=== PATIENT | female | born 1960 | race Caucasian/White ===

== ENCOUNTER 2023-03-07 15:31 | Emergency (ER) | payer OTHER ==
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
[2023-03-07 16:33] LABS: Absolute Neutrophil Ct (ANC) 6.81 x10^3/uL (1.4-6.9); BASOPHIL % 0.4 % (0.0-0.4); Basophil (Absolute #) 0.07 x10^3/uL (0-0.4); Eosinophil % 3.3 % (0.00-5.0); Eosinophil (Absolute #) 0.63 x10^3/uL (0-0.5); Hematocrit 40.9 % (35-47); Hemoglobin 12.7 g/dL (12.0-16.0); IMMATURE GRAN # 0.06 x10^3u/L (0.00-0.03); IMMATURE GRAN % 0.3 % (0.00-0.4); Lymphocyte (Absolute #) 10.62 x10^3/uL (1.0-4.6); Lymphocytes % 56.4 % (24.0-44.0); Mean Cell Volume 90.9 fL (78-100); Mean Corpuscular Hemoglobin 28.2 pg (26-32); Mean Corpuscular Hgb Concent. 31.1 g/dL (32-36); Mean Platelet Volume 8.9 fL (7.5-11.0); Monocyte (Absolute #) 0.64 x10^3/uL (0.0-1.3); Monocytes % 3.4 % (0.0-12.0); Neutrophil % 36.2 % (36.0-66.0); Platelet Count 177 x10^3/uL (150-450); Red Cell Distribution Width 15.4 % (11.5-14.0); White Blood Count 18.8 x10^3/uL (4.0-10.5)
[2023-03-07 17:00] LABS: ALBUMIN 3.8 g/dL (3.5-5.0); ALKALINE PHOSPHATASE 214 U/L (38-126); ANION GAP 14.6 MEQ/L (5-15); BLOOD UREA NITROGEN 22 mg/dL (7-17); CHLORIDE 103 mmol/L (98-107); Carbon Dioxide 25 mmol/L (22-30); Creatinine 1 0.71 mg/dL (0.52-1.04); EST GLOMERULAR FILTRATION RATE > 60.0 ML/MIN; Glucose 100 mg/dL (74-106); Potassium 4.2 mmol/L (3.5-5.1); SGOT/AST 28 U/L (14-36); SGPT/ALT 26 U/L (0-35); SODIUM 138 mmol/L (137-145); Total Protein 7.1 g/dL (6.3-8.2)
[2023-03-07 17:31] VITALS: BP 112/76; PULSE 87; O2SAT 94
[2023-03-07 17:38] LABS: INFLUENZA A NEGATIVE (NEGATIVE); INFLUENZA B NEGATIVE (NEGATIVE); RESPIRATORY SYNCTIAL VIRUS NEGATIVE (NEGATIVE); SARS-CoV-2 Xpert Express NEGATIVE (NEGATIVE)
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
[2023-03-07] MEDS ORDERED: Levofloxacin 250MG Tablet PO ONE (18:11)
[2023-03-07] MEDS ORDERED: Levofloxacin 250MG Tablet ONE (18:13)
[2023-03-07 19:09] LABS: Slide Review 1 YES
== END 2023-03-07 18:28 | disposition home or self-care (01) ==
LOC: ED 15:31
DX: J18.9 Pneumonia, unspecified organism (principal); J44.9 Chronic obstructive pulmonary disease, unspecified; Z79.899 Other long term (current) drug therapy; Z72.0 Tobacco use; Z20.828 Contact with and (suspected) exposure to other viral communicable diseases
CPT/HCPCS: 0241U; 36415; 71250; 80053; 83605; 85025; 99283; A9270-GY

== ENCOUNTER 2024-10-18 11:17 | Emergency (ER) | payer BC ==
--- NOTE | 2024-10-18 11:19 | ERPHSYRPT ---
- History of Present Illness Time Seen by Provider: 10/18/24 11:18 Historian: patient, family Exam Limitations: no limitations Physician History: This is a 63-year-old white male patient who arrives by private vehicle accompanied by his significant other and is a patient of Dr. Chapman. His complaint is nausea vomiting and diarrhea as well as abdominal pain for 24 hours . He is unable to hold any oral intake down. Patient denies new medications. He is a daily smoker of cigarettes. He also smokes marijuana daily. Patient has a history of anxiety, hyperlipidemia, depression, seizure disorder, COPD and has leukemia. This is never happened to him in the past. He has not been around any individuals with similar symptoms or with the diagnosis of viral illness. Timing/Duration: yesterday Quality: cramping (Generalized mild) Abdominal Pain Onset Location: generalized abdomen Pain Radiation: no radiation Severity of Pain-Max: mild Severity of Pain-Current: mild Modifying Factors: Improves With: vomiting Associated Symptoms: diarrhea, loss of appetite, nausea, vomiting, weakness, No chest pain, No fever/chills, No headache, No shortness of breath Previous symptoms: no prior history, no recent treatment Allergies/Adverse Reactions: No Known Drug Allergies Allergy (Verified 03/07/23 15:46) Home Medications: Albuterol Sulfate [Albuterol Sulfate Hfa] 1 puff IH DAILY 03/07/23 [History] Aspirin EC 81 mg [Ecotrin 81 mg] 81 mg PO BID 03/07/23 [History] Atorvastatin Calcium 80 mg PO DAILY 03/07/23 [History] Docusate Sodium 100 mg [Docusate Sodium 100 MG] 100 mg PO DAILY 03/07/23 [History] Fluticasone/Umeclidin/Vilanter [Trelegy Ellipta 100-62.5-25] 1 unit IH DAILY 03/07/23 [History] Levetiracetam [Keppra] 1,000 mg PO DAILY 03/07/23 [History] PARoxetine HCL [Paxil] 30 mg PO BID 03/07/23 [History] clonazePAM [Klonopin] 0.5 mg PO DAILY PRN 10/18/24 [History] Hx Tetanus, Diphtheria Vaccination/Date Given: Yes Hx Influenza Vaccination/Date Given: Yes Hx Pneumococcal Vaccination/Date Given: No Travel Risk - International Travel Have you traveled outside of the country in past 3 weeks: No - Emerging Infectious Disease Are you exhibiting symptoms associated with any current EIDs: Yes Symptoms: Abdominal Pain, Diarrhea, Vomitting - Review of Systems Constitutional: Weakness Eyes: No Symptoms Ears, Nose, & Throat: No Symptoms Respiratory: No Symptoms Cardiac: No Symptoms Abdominal/Gastrointestinal: Abdominal Pain, Nausea, Vomiting, Diarrhea, Appetite Changes Genitourinary Symptoms: No Symptoms Musculoskeletal: Arthralgias, Myalgias, No Neck Pain Skin: No Symptoms Neurological: No Symptoms Psychological: No Symptoms Endocrine: No Symptoms Hematologic/Lymphatic: No Symptoms Immunological/Allergic: No Symptoms All Other Systems: Reviewed and Negative - Past Medical History Pertinent Past Medical History: Yes Neurological History: Stroke ENT History: Cataracts Cardiac History: Hypertension Respiratory History: COPD Endocrine Medical History: Other Musculoskeletal History: Osteoarthritis GI Medical History: No Pertinent History History: No Pertinent History Psycho-Social History: Anxiety, Depression Other Medical History: PMH: LACERATED SPLEEN, COLLAPSED LUNG, MUTLIPLE RIB AND VERTEBRA FRACTURES. PSH: B KNEE SURGERY - Past Surgical History Past Surgical History: Yes Other Surgical History: abdominial surgery. chest tube. right and left knee ligament repair - Social History Smoking Status: Current every day smoker How long have you smoked: years Exposure to second hand smoke: Yes Drug Use: marijuana Patient Lives Alone: No - Nursing Vital Signs Nursing Vital Signs: Initial Vital Signs Temperature 97.2 F 10/18/24 11:26 Pulse Rate 110 H 10/18/24 11:26 Respiratory Rate 20 10/18/24 11:26 Blood Pressure 111/93 10/18/24 11:26 O2 Sat by Pulse Oximetry 98 10/18/24 11:26 Pain Scale Pain Intensity 0 - Physical Exam General Appearance: mild distress, alert, anxiety, thin Eye Exam: PERRL/EOMI, eyes nml inspection Ears, Nose, Throat Exam: normal ENT inspection, moist mucous membranes Neck Exam: normal inspection, non-tender, supple, full range of motion Respiratory Exam: normal breath sounds, lungs clear, airway intact, No chest tenderness, No respiratory distress Cardiovascular Exam: tachycardia Gastrointestinal/Abdomen Exam: soft, normal bowel sounds, tenderness (Mild diffuse), guarding (Mild diffuse to palpation) Rectal Exam: not done Back Exam: normal inspection, normal range of motion, No CVA tenderness, No vertebral tenderness Extremity Exam: normal inspection, normal range of motion, pelvis stable Neurologic Exam: alert, oriented x 3, cooperative, sausage inspector II-XII nml as tested, nml cerebellar function, nml station & gait, sensation nml Skin Exam: normal color, warm, dry Lymphatic Exam: No adenopathy SpO2 Interpretation: normal O2 Delivery: Room Air - Course Nursing assessment & vital signs reviewed: Yes Ordered Tests: Active Orders 24 hr Category Date Time Status IV Insertion STAT Care 10/18/24 11:43 Active ABDOMEN AND PELVIS W/0 CONTRAS [CT] Stat Exams 10/18/24 12:00 Completed AMYLASE Stat Lab 10/18/24 11:55 Completed BLOOD CULTURE Stat Lab 10/18/24 12:25 Received CBC W DIFF Stat Lab 10/18/24 11:55 Results CMP Stat Lab 10/18/24 11:55 Completed CULTURE,URINE Stat Lab 10/18/24 12:16 Received LIPASE Stat Lab 10/18/24 11:55 Completed MONO SCREEN Stat Lab 10/18/24 11:55 Completed Manual Differential NC Stat Lab 10/18/24 11:55 Results Pathologist Review Stat Lab 10/18/24 11:55 Results UA W/RFX UR CULTURE Stat Lab 10/18/24 12:16 Completed Medication Summary Discontinued Medications Generic Name Dose Route Start Last Admin Trade Name Pardeepq PRN Reason Stop Dose Admin Sodium Chloride 1,000 mls @ 999 mls/hr 10/18/24 11:43 10/18/24 13:47 Sodium Chloride 0.9% 1000 Ml IV 10/18/24 12:43 Infused .Q1H1M STA Infusion Sodium Chloride Confirm 10/18/24 12:05 Sodium Chloride 0.9% 1000 Ml Administered 10/18/24 12:06 Dose 1,000 mls @ ud .ROUTE .STK-MED ONE Ondansetron HCl 4 mg 10/18/24 11:43 10/18/24 12:07 Ondansetron Hcl 4 Mg/2 Ml Vial IV 10/18/24 11:44 4 mg STAT ONE Administration Ondansetron HCl Confirm 10/18/24 12:05 Ondansetron Hcl 4 Mg/2 Ml Vial Administered 10/18/24 12:06 Dose 4 mg .ROUTE .STK-MED ONE Pantoprazole Sodium 40 mg 10/18/24 11:43 10/18/24 12:07 Pantoprazole 40 Mg Vial IV 10/18/24 11:44 40 mg STAT ONE Administration Pantoprazole Sodium Confirm 10/18/24 12:05 Pantoprazole 40 Mg Vial Administered 10/18/24 12:06 Dose 40 mg IV .STK-MED ONE Lab/Rad Data: Laboratory Result Diagrams 10/18/24 11:55 10/18/24 11:55 Laboratory Results 10/18/24 10/18/24 10/18/24 Range/Units 12:26 12:16 11:55 WBC (4.23-9.07) x10^3/uL RBC (4.63-6.08) x10^6/uL Hgb (13.7-17.5) g/dL Hct (40.1-51.0) % MCV (79.0-92.2) fL MCH (25.7-32.2) pg MCHC (32.3-36.5) g/dL RDW (11.6-14.4) % Plt Count (163-337) x10^3/uL MPV (9.4-12.4) fL Segmented Neutrophils (34.0-67.9) % Band Neutrophils (0.0-2.0) % Lymphocytes (Manual) (21.8-53.1) % Monocytes (Manual) (5.3-12.2) % Metamyelocytes % Platelet Estimate (NORMAL) RBC Morphology Anisocytosis Macrocytosis Smear Path Review Sodium (135-145) mmol/L Potassium (3.5-5.1) mmol/L Chloride (98-107) mmol/L Carbon Dioxide (22-30) mmol/L Anion Gap (5-15) MEQ/L BUN (9-20) mg/dL Creatinine (0.66-1.25) mg/dL Estimated GFR ML/MIN Glucose (74-106) mg/dL Calcium (8.4-10.2) mg/dL Total Bilirubin (0.2-1.3) mg/dL AST (17-59) U/L ALT (0-50) U/L Alkaline Phosphatase (38-126) U/L Serum Total Protein (6.3-8.2) g/dL Albumin (3.5-5.0) g/dL Amylase (30-110) U/L Lipase (23-300) U/L Urine Color Dark Yellow (Yellow) Urine Appearance Cloudy A (Clear) Urine pH 5.0 (4.6-8.0) Ur Specific Mentcle >=1.030 A (1.005-1.030) Urine Protein 100 A (Negative) Urine Glucose (UA) Negative (Negative) mg/dL Urine Ketones Trace A (Negative) Urine Blood Trace (Negative) Urine Nitrite Negative (Negative) Urine Bilirubin Moderate A (Negative) Urine Urobilinogen 1.0 A (0.2) mg/dL Ur Leukocyte Esterase Trace A (Negative) U Hyaline Cast (Auto) >50 A (0-2) /LPF Urine Microscopic RBC 6-10 A (0-5) /HPF Urine Microscopic WBC 0-2 (0-5) /HPF Ur Epithelial Cells Few (None Seen) /HPF Urine Bacteria None Seen (None Seen) /HPF Urine Culture Reflexed YES (NO) Monoscreen NEGATIVE (NEGATIVE) Influenza Type A Ag NEGATIVE (NEGATIVE) Influenza Type B Ag NEGATIVE (NEGATIVE) RSV (PCR) NEGATIVE (NEGATIVE) SARS-CoV-2 (PCR) NEGATIVE (NEGATIVE) 10/18/24 10/18/24 Range/Units 11:55 11:55 WBC 70.8 H* (4.23-9.07) x10^3/uL RBC 6.59 H (4.63-6.08) x10^6/uL Hgb 18.9 H (13.7-17.5) g/dL Hct 57.7 H (40.1-51.0) % MCV 87.6 (79.0-92.2) fL MCH 28.7 (25.7-32.2) pg MCHC 32.8 (32.3-36.5) g/dL RDW 15.1 H (11.6-14.4) % Plt Count 332 (163-337) x10^3/uL MPV 9.7 (9.4-12.4) fL Segmented Neutrophils 8 L (34.0-67.9) % Band Neutrophils 2 (0.0-2.0) % Lymphocytes (Manual) 88 H (21.8-53.1) % Monocytes (Manual) 1 L (5.3-12.2) % Metamyelocytes 1 % Platelet Estimate NORMAL (NORMAL) RBC Morphology ABNORMAL Anisocytosis 1+ Macrocytosis 1+ Smear Path Review Pending Sodium 139 (135-145) mmol/L Potassium 4.4 (3.5-5.1) mmol/L Chloride 95 L (98-107) mmol/L Carbon Dioxide 21 L (22-30) mmol/L Anion Gap 27.6 H (5-15) MEQ/L BUN 31 H (9-20) mg/dL Creatinine 1.76 H (0.66-1.25) mg/dL Estimated GFR 43.5 ML/MIN Glucose 188 H (74-106) mg/dL Calcium 10.1 (8.4-10.2) mg/dL Total Bilirubin 0.90 (0.2-1.3) mg/dL AST 32 (17-59) U/L ALT 34 (0-50) U/L Alkaline Phosphatase 178 H (38-126) U/L Serum Total Protein 10.0 H (6.3-8.2) g/dL Albumin 5.5 H (3.5-5.0) g/dL Amylase 93 (30-110) U/L Lipase 83 (23-300) U/L Urine Color (Yellow) Urine Appearance (Clear) Urine pH (4.6-8.0) Ur Specific Mentcle (1.005-1.030) Urine Protein (Negative) Urine Glucose (UA) (Negative) mg/dL Urine Ketones (Negative) Urine Blood (Negative) Urine Nitrite (Negative) Urine Bilirubin (Negative) Urine Urobilinogen (0.2) mg/dL Ur Leukocyte Esterase (Negative) U Hyaline Cast (Auto) (0-2) /LPF Urine Microscopic RBC (0-5) /HPF Urine Microscopic WBC (0-5) /HPF Ur Epithelial Cells (None Seen) /HPF Urine Bacteria (None Seen) /HPF Urine Culture Reflexed (NO) Monoscreen (NEGATIVE) Influenza Type A Ag (NEGATIVE) Influenza Type B Ag (NEGATIVE) RSV (PCR) (NEGATIVE) SARS-CoV-2 (PCR) (NEGATIVE) - Progress Progress: improved, re-examined Progress Note: 10/18/24 12:31 My medical decision making and the assignment of moderate complexity is based on review of the patient's past medical history, review of the patient's medication list, review the patient's drug allergy list, history present illness and physical findings on examination. The workup includes placement of intravenous line, infusion of normal saline solution, infusion of Zofran, infusion of Protonix, CBC, CMP, amylase, lipase, urinalysis, CT scan of the abdomen pelvis without contrast, viral swabs, monotest. Differential diagnosis includes but is not limited to pancreatitis, viral illness, dehydration, urinary tract infection, acute intra-abdominal/pelvic abnormality 10/18/24 14:[address] scan of the abdomen pelvis was interpreted by the radiologist and I reviewed the impression. The impression states abnormal fluid distended stomach of small bowel loops to the level of the pelvis favoring small bowel obstruction. Remainder of the CT scan of the abdomen pelvis without contrast showed chronic findings. I believe the patient's laboratory data results. The patient has a history of leukemia. He has a white count today of 70,000 and his hemoglobin of 18.9. As recent as a week ago, per the patient's art psychotherapist or therapist (Dr. Malcom Gooden) the patient's white count typically runs between 30 and 40,000 and his hem oglobin was 15,000. Dr. Gooden feels that this patient likely has a viral infection and is hemoconcentrated/dehydrated and states that this patient can be treated just like any other patient who we feel has a small bowel obstruction versus ileus. I will discuss with our telehospitalist to see if they are comfortable keeping this patient here. Otherwise, we will make arranges to transfer this patient. 10/18/24 14:[address] Boyd, our telehospitalist on-call at this time. I reviewed the patient history, presenting complaint, physical findings on examination and our workup results. He accepts the patient to be placed in observation with consultation of the general surgeons. However, the patient is going to leave AGAINST MEDICAL ADVICE. He is not angry. He stated that he would rather go home and hydrate himself. He does not sleep well in the hospitals. He was informed, and he is awake alert oriented and can make the decision for himself, that he would have to sign the AGAINST MEDICAL ADVICE form because his condition can suddenly worsen including worsening symptoms, bowel perforation and possible . I reviewed all of his lab results, the discussion I had with his art psychotherapist or therapist and the CT scan result findings. After our discussion, he still wants to leave AGAINST MEDICAL ADVICE. Counseled pt/family regarding: lab results, diagnosis, need for follow-up, rad results Medical Desision Making - Independent Historian Additional History obtained from: Spouse - Discussion of managment Care discussed with:: specialist (I spoke with the patient's art psychotherapist or therapist, Dr. Malcom Aguilera) Reviewed:: Test results, Need for additional workup - Diagnostic Testing Diagnostic test were ordered, analyzed, and reviewed by me: Yes Radiological Interpretation: Reviewed by me, Teleradiologist Report - Risk of complications The pt has a high risk of morbidity or mortality based on: Decision regarding hospitilization or escalation of hosp level of care - Departure Departure Disposition: AMA Clinical Impression: Vomiting and diarrhea, Small bowel obstruction, Leukocytosis, Dehydration Condition: Fair Critical Care Time: No Referrals: ALLY CHAPMAN [Primary Care Provider] - Follow up/PCP as directed Additional Instructions: Drink only clear liquids. Once you are tolerating clear liquids well, advance your diet and avoid fatty greasy spicy foods. Immediately return to the emergency department if your symptoms worsen. Call your art psychotherapist or therapist, primary care provider today, 10/18/2024, to make arrangements for follow-up appointment for further evaluation and management. Prescriptions: Ondansetron ODT 4 MG [Zofran Odt 4 mg] 4 mg PO Q6H PRN PRN #10 tablet PRN Reason: Vomiting
[2024-10-18 11:31] VITALS: TEMP 97.2
[2024-10-18] MEDS ORDERED: Sodium Chloride 0.9% 1000 ML 1,000 ML ONE (12:05)
[2024-10-18] MEDS ORDERED: PROTONIX 40 MG IV IV ONE (12:05)
[2024-10-18] MEDS ORDERED: Zofran 4 MG/2 ML VIAL ONE (12:05)
[2024-10-18] MEDS: PROTONIX 40 MG IV IV ONE (12:07)
[2024-10-18] MEDS: Zofran 4 MG/2 ML VIAL IV ONE (12:07)
[2024-10-18] MEDS: Sodium Chloride 0.9% 1000 ML 1,000 ML IV STA (12:10)
[2024-10-18 12:33] LABS: Hematocrit 57.7 % (40.1-51.0); Hemoglobin 18.9 g/dL (13.7-17.5); Mean Cell Volume 87.6 fL (79.0-92.2); Mean Corpuscular Hemoglobin 28.7 pg (25.7-32.2); Mean Corpuscular Hgb Concent. 32.8 g/dL (32.3-36.5); Mean Platelet Volume 9.7 fL (9.4-12.4); Platelet Count 332 x10^3/uL (163-337); Red Blood Count 6.59 x10^6/uL (4.63-6.08); Red Cell Distribution Width 15.1 % (11.6-14.4)
[2024-10-18 12:48] LABS: ALBUMIN 5.5 g/dL (3.5-5.0); ANION GAP 27.6 MEQ/L (5-15); BILIRUBIN,TOTAL 0.9 mg/dL (0.2-1.3); Calcium 10.1 mg/dL (8.4-10.2); Creatinine 1 1.76 mg/dL (0.66-1.25); EST GLOMERULAR FILTRATION RATE 43.5 ML/MIN; Potassium 4.4 mmol/L (3.5-5.1)
[2024-10-18 12:52] LABS: White Blood Count 70.8 x10^3/uL (4.23-9.07)
[2024-10-18 13:09] LABS: INFLUENZA A NEGATIVE (NEGATIVE); INFLUENZA B NEGATIVE (NEGATIVE); RESPIRATORY SYNCTIAL VIRUS NEGATIVE (NEGATIVE); SARS-CoV-2 Xpert Express NEGATIVE (NEGATIVE)
--- NOTE | 2024-10-18 13:39 | XRAY ---
Indication: Abdomen pain. Nausea, vomiting, diarrhea. Multiple contiguous axial images obtained through the abdomen and pelvis without contrast. Comparison: None Lung bases demonstrates pulmonary emphysema, scattered subsegmental atelectasis/scarring, and mild bilateral dependent atelectasis. Heart not enlarged. Markedly fluid distended stomach and small bowel loops throughout with tiny fluid leveling. Small bowel distention up to 4.5 cm to level of pelvic inlet. More distal ileal bowel loops and colon appear decompressed concerning for obstruction. No free fluid/air. Remaining liver, gallbladder, pancreas, spleen, adrenal glands, kidneys, ureters, and bladder are unremarkable for noncontrast exam. Mild scattered aortoiliac calcifications without AAA. Osseous structures intact with minimal degenerative changes throughout lumbar spine and mild degenerative changes both hips. Impression: 1. Abnormal fluid distended stomach and small bowel loops to level of the pelvis favoring distal small bowel obstruction. 2. Chronic findings including pulmonary emphysema, atelectasis/scarring, arteriosclerotic disease, and chronic bony findings.
[2024-10-18 13:41] LABS: Appearance Cloudy (Clear); Bacteria None Seen /HPF (None Seen); Bilirubin Moderate (Negative); Blood Trace (Negative); Epithelial Cells Few /HPF (None Seen); Glucose, Urine Negative (Negative); Hyaline Casts >50 /LPF (0-2); Ketones Trace (Negative); Leukocyte Esterase Trace (Negative); Nitrite Negative (Negative); Protein,Urine Dip 100 (Negative); Specific Gravity >=1.030 (1.005-1.030); WBC 0-2 /HPF (0-5)
[2024-10-18 13:53] LABS: ANISOCYTOSIS 1+; BAND 2 % (0.0-2.0); Lymphocytes 88 % (21.8-53.1); Macrocytosis 1+; Metamyelocyte 1 %; Monocyte 1 % (5.3-12.2); Neutrophils 8 % (34.0-67.9); Platelet Estimate NORMAL (NORMAL); Total Cells Counted 100
[2024-10-18 15:09] VITALS: BP 115/86; PULSE 98; RESP 30; O2SAT 95
== END 2024-10-18 15:10 | disposition left against medical advice (07) ==
LOC: ED 11:17
DX: K56.609 Unspecified intestinal obstruction, unspecified as to partial versus complete obstruction (principal); R11.2 Nausea with vomiting, unspecified; R19.7 Diarrhea, unspecified; D72.829 Elevated white blood cell count, unspecified; E86.0 Dehydration; R10.9 Unspecified abdominal pain; E78.5 Hyperlipidemia, unspecified; I10 Essential (primary) hypertension; Z79.899 Other long term (current) drug therapy; Z72.0 Tobacco use
CPT/HCPCS: 0241U; 36415; 74176; 80053; 81001; 82150; 83690; 85025; 86308; 87040; 87086; 96360; 96374; 96375; 99285; 99284; J2405

== ENCOUNTER 2024-10-18 18:30 | Inpatient (IN) | payer BC ==
--- NOTE | 2024-10-18 18:36 | ERPHSYRPT ---
- History of Present Illness Time Seen by Provider: 10/18/24 18:35 Source: patient, family Exam Limitations: no limitations Physician History: This is a 63-year-old white male patient has a history of anxiety, depression, leukemia, nausea vomiting and diarrhea symptoms and returns to the emergency department after leaving AMA just a few hours ago. He was diagnosed with leukocytosis, dehydration and hemoconcentration, vomiting and diarrhea, and viral syndrome. He underwent a CT scan of the abdomen pelvis a few hours ago and that results showed SBO versus ileus. I had spoken with the patient's airplane mechanic, Dr. Malcom Gooden a few hours ago. He feels the patient likely has a viral illness became dehydrated and hemoconcentrated after several episodes of vomiting and diarrhea. We had spoken to telehospitalist, Dr. Boyd, and obtained an inpatient admission. However, the patient left AMA and wanted to try to rehydrate himself at home. I did write an outpatient prescription for Zofran and ODT. I told the patient of his symptoms were worse he needed to return to the emergency department and now he has. He denies chest pain and he denies shortness of breath. We will admit him into the hospital. I did speak with Dr. Boyd again. I do not feel it necessary that we repeat the labs. We will obtain a general surgical consultation while the patient is in the hospital. Timing/Duration: today Severity: moderate Associated Symptoms: nausea, vomiting, abdominal pain, weakness, No shortness of breath, No chest pain Allergies/Adverse Reactions: No Known Drug Allergies Allergy (Verified 10/18/24 18:34) Home Medications: Albuterol Sulfate [Albuterol Sulfate Hfa] 1 puff IH DAILY 03/07/23 [History] Aspirin EC 81 mg [Ecotrin 81 mg] 81 mg PO BID 03/07/23 [History] Atorvastatin Calcium 80 mg PO DAILY 03/07/23 [History] Docusate Sodium 100 mg [Docusate Sodium 100 MG] 100 mg PO DAILY 03/07/23 [History] Fluticasone/Umeclidin/Vilanter [Trelegy Ellipta 100-62.5-25] 1 unit IH DAILY 03/07/23 [History] Levetiracetam [Keppra] 1,000 mg PO DAILY 03/07/23 [History] PARoxetine HCL [Paxil] 30 mg PO BID 03/07/23 [History] clonazePAM [Klonopin] 0.5 mg PO DAILY PRN 10/18/24 [History] Hx Tetanus, Diphtheria Vaccination/Date Given: Yes Hx Influenza Vaccination/Date Given: Yes Hx Pneumococcal Vaccination/Date Given: No Travel Risk - International Travel Have you traveled outside of the country in past 3 weeks: No - Emerging Infectious Disease Are you exhibiting symptoms associated with any current EIDs: Yes Symptoms: Abdominal Pain, Diarrhea, Vomitting - Review of Systems Constitutional: Weakness Eyes: No Symptoms Ears, Nose, & Throat: No Symptoms Respiratory: No Symptoms Cardiac: No Symptoms Abdominal/Gastrointestinal: Abdominal Pain, Nausea, Vomiting, Diarrhea, Appetite Changes Genitourinary Symptoms: No Symptoms Musculoskeletal: No Symptoms Skin: No Symptoms Psychological: No Symptoms Endocrine: No Symptoms Hematologic/Lymphatic: No Symptoms Immunological/Allergic: No Symptoms All Other Systems: Reviewed and Negative - Past Medical History Pertinent Past Medical History: Yes Neurological History: Stroke ENT History: Cataracts Cardiac History: Hypertension Respiratory History: COPD Endocrine Medical History: Other Musculoskeletal History: Osteoarthritis GI Medical History: No Pertinent History History: No Pertinent History Psycho-Social History: Anxiety, Depression Other Medical History: PMH: LACERATED SPLEEN, COLLAPSED LUNG, MUTLIPLE RIB AND VERTEBRA FRACTURES. PSH: B KNEE SURGERY - Past Surgical History Past Surgical History: Yes Other Surgical History: abdominial surgery. chest tube. right and left knee ligament repair - Social History Smoking Status: Current every day smoker How long have you smoked: years Exposure to second hand smoke: Yes Drug Use: marijuana Patient Lives Alone: No - Social Determinants of Health Will the patient participate in the screening: Declined to provide - Nursing Vital Signs Nursing Vital Signs: Initial Vital Signs Temperature 96.8 F 10/18/24 18:38 Blood Pressure 97/73 10/18/24 18:38 Pain Scale Pain Intensity 10 - Physical Exam General Appearance: mild distress, alert, anxiety, thin Eye Exam: PERRL/EOMI, eyes nml inspection Ears, Nose, Throat Exam: normal ENT inspection, moist mucous membranes Neck Exam: normal inspection, non-tender, supple, full range of motion Respiratory Exam: normal breath sounds, lungs clear, airway intact, No chest tenderness, No respiratory distress Cardiovascular Exam: regular rate/rhythm, normal heart sounds, normal peripheral pulses Gastrointestinal/Abdomen Exam: soft, normal bowel sounds, tenderness, distention (Mild), guarding, No rebound Rectal Exam: not done Back Exam: normal inspection, normal range of motion, No CVA tenderness, No vertebral tenderness Extremity Exam: normal inspection, normal range of motion, pelvis stable Neurologic Exam: alert, oriented x 3, cooperative, proofer prepress II-XII nml as tested, nml cerebellar function, nml station & gait, sensation nml Skin Exam: normal color, dry Lymphatic Exam: No adenopathy SpO2 Interpretation: normal O2 Delivery: Room Air - Course Nursing assessment & vital signs reviewed: Yes - Progress Progress: pain not gone completely Progress Note: 10/18/24 19:09 My medical decision making and the assignment of low to moderate complexity of this patient's medical issue today is based on review of the patient's past medical history, review of patient's medication list, reviewed patient drug allergy list, history present illness and physical findings. I spoke with the telehospitalist, Dr. Boyd, and there is no need to repeat the labs were just obtained a few hours ago. However, I will contact general surgery before the patient is transferred to the floor to make them aware that there is a consultation. The differential diagnosis in this patient includes vomiting and diarrhea, small obstruction, leukocytosis and dehydration Discussed with .: Danial Will see patient in: hospital (full admit) Counseled pt/family regarding: diagnosis, need for follow-up, rad results Medical Desision Making - Independent Historian Additional History obtained from: Spouse - Diagnostic Testing Diagnostic test were ordered, analyzed, and reviewed by me: Yes Radiological Interpretation: Reviewed by me, Teleradiologist Report - Risk of complications The pt has a high risk of morbidity or mortality based on: Decision regarding hospitilization or escalation of hosp level of care - Departure Departure Disposition: In-patient Admission Clinical Impression: Vomiting and diarrhea, Leukocytosis, Small bowel obstruction, Dehydration Condition: Stable Critical Care Time: No Referrals: ALLY CHAPMAN [Primary Care Provider] - Follow up/PCP as directed
[2024-10-18] MEDS ORDERED: Zofran 4 MG/2 ML VIAL ONE (19:43)
[2024-10-18] MEDS: Hydromorphone 1 mg/ml Injection IV ONE (19:47)
[2024-10-18] MEDS: Zofran 4 MG/2 ML VIAL IV ONE (19:47)
[2024-10-18] MEDS ORDERED: Zofran 4 MG/2 ML VIAL IV PRN (21:50)
[2024-10-18] MEDS ORDERED: clonazePAM PO PRN (21:55)
[2024-10-18] MEDS ORDERED: FEVERALL 650 MG PR PRN (21:58)
--- NOTE | 2024-10-18 22:10 | PCM.HP ---
History of Present Illness - Chief Complaint Chief Complaint: SBO versus ileus Date: 10/18/24 History of Present Illness: is a 63 year old male with a history of chronic leukemia (follows with Dr. Malcom Munoz with a baseline leukocytosis around 40K), anxiety, and depression, who now presents to the hospital with nausea vomiting and diarrhea symptoms, after leaving the ED AMA earlier and then returning. He was diagnosed with leukocytosis, dehydration and hemoconcentration, vomiting and diarrhea, and viral syndrome during the first ED visit today. He underwent a CT scan of the abdomen pelvis a few hours ago and that results showed SBO versus i leus. The ED physician had spoken with the patient's senior microstrategy developer, Dr. Malcom Gooden and his assessment was that the patient likely has a viral illness became dehydrated and hemoconcentrated after several episodes of vomiting and diarrhea. He denies chest pain and he denies shortness of breath. He also denied hematemesis, melena, or rectal bleeding. No fevers or chills are reported. - Review of Systems Constitutional: No Symptoms Eyes: No Symptoms Ears, Nose, & Throat: No Symptoms Respiratory: No Symptoms Cardiac: No Symptoms Abdominal/Gastrointestinal: Nausea, Vomiting, Diarrhea Genitourinary Symptoms: No Symptoms Musculoskeletal: No Symptoms Skin: No Symptoms Neurological: No Symptoms Psychological: No Symptoms Endocrine: No Symptoms Hematologic/Lymphatic: No Symptoms Immunological/Allergic: No Symptoms All Other Systems: Reviewed and Negative Medications & Allergies Home Medications: Home Medication List Albuterol Sulfate [Albuterol Sulfate Hfa] 1 puff IH DAILY 03/07/23 [History Confirmed 10/18/24] Aspirin EC 81 mg [Ecotrin 81 mg] 81 mg PO BID 03/07/23 [History Confirmed 10/18/24] Atorvastatin Calcium 80 mg PO DAILY 03/07/23 [History Confirmed 10/18/24] Docusate Sodium 100 mg [Docusate Sodium 100 MG] 100 mg PO DAILY 03/07/23 [History Confirmed 10/18/24] Fluticasone/Umeclidin/Vilanter [Trelegy Ellipta 100-62.5-25] 1 unit IH DAILY 03/07/23 [History Confirmed 10/18/24] Levetiracetam [Keppra] 1,000 mg PO DAILY 03/07/23 [History Confirmed 10/18/24] PARoxetine HCL [Paxil] 30 mg PO BID 03/07/23 [History Confirmed 10/18/24] Ondansetron ODT 4 MG [Zofran Odt 4 mg] 4 mg PO Q6H PRN PRN #10 tablet 10/18/24 [Rx Confirmed 10/18/24] clonazePAM [Klonopin] 0.5 mg PO DAILY PRN 10/18/24 [History Confirmed 10/18/24] Allergies/Adverse Reactions: Allergies Allergy/AdvReac Type Severity Reaction Status Date / Time No Known Drug Allergies Allergy Verified 10/18/24 18:34 - Past Medical History Past Medical History: Yes Neurological History: Stroke ENT History: Cataracts Cardiac History: Hypertension Respiratory History: COPD Endocrine Medical History: Other Musculoskelatal History: Osteoarthritis GI Medical History: No Pertinent History History: No Pertinent History Pyscho-Social History: Anxiety, Depression Comment: PMH: LACERATED SPLEEN, COLLAPSED LUNG, MUTLIPLE RIB AND VERTEBRA FRACTURES. PSH: B KNEE SURGERY - Past Surgical History Past Surgical History: Yes Other Surgical History: abdominial surgery. chest tube. right and left knee ligament repair Significant Family History: no pertinent family hx - Social History Smoking Status: Current every day smoker How long have you smoked: years Exposure to second hand smoke: Yes Alcohol: None Drug Use: marijuana - Social Determinants of Health Will the patient participate in the screening: Declined to provide Do you worry about a steady place to live?: No Do you have any problems with any of the following?: No known problems In the past 12 months,have you had to go without utilities?: No Have you or anyone in your house had to go without enough: No Transportation Issues: No Has anyone in your support network made you feel unsafe?: No - Physical Exam Vital Signs: Vital Signs - 24 hr Temp Pulse Resp BP BP Pulse Ox 10/18/24 21:00 116 H 115/82 93 L 10/18/24 20:30 114 H 98/74 92 L 10/18/24 20:00 112 H 18 99/74 93 L 10/18/24 19:51 108/78 94 L 10/18/24 19:00 114 H 18 117/82 95 10/18/24 18:38 96.8 F 97/73 10/18/24 18:37 94 L General Appearance: no apparent distress, alert Neurologic Exam: alert, oriented x 3, cooperative, payroll technician II-XII nml as tested, normal mood/affect, nml cerebellar function Eye Exam: PERRL/EOMI, eyes nml inspection Ears, Nose, Throat Exam: normal ENT inspection Neck Exam: normal inspection, non-tender, supple, full range of motion Respiratory Exam: normal breath sounds, lungs clear Cardiovascular Exam: regular rate/rhythm, normal heart sounds Gastrointestinal/Abdomen Exam: soft, normal bowel sounds Back Exam: normal range of motion Extremity Exam: normal inspection, normal range of motion Skin Exam: normal color Assessment/Plan (1) Ileus Current Visit: Yes Status: Acute Assessment & Plan: Bowel rest. IV fluids. NPO except meds with sips. IV PPI. ED was to call surgery for consultation during the first ED visit today; will notify surgery that the patient has in fact been admitted. Monitor clinical course. Code(s): K56.7 - ILEUS, UNSPECIFIED (2) Vomiting and diarrhea Current Visit: Yes Status: Acute Assessment & Plan: Antiemetics Code(s): R11.10 - VOMITING, UNSPECIFIED; R19.7 - DIARRHEA, UNSPECIFIED (3) Leukocytosis Current Visit: Yes Status: Acute Assessment & Plan: Chronic leukemia. Baseline WBC 40K. Suspect component of hemoconcentration from dehydration. Will monitor. Code(s): D72.829 - ELEVATED WHITE BLOOD CELL COUNT, UNSPECIFIED (4) Dehydration Current Visit: Yes Status: Acute Assessment & Plan: Creatinine elevated. Unclear if the patient has a component of acute kidney injury or CKD. IV fluids. Monitor electrolytes. Code(s): E86.0 - DEHYDRATION Telemedicine Encounter - Telemedicine Encounter Telemedicine Encounter: "The entirety of this encounter was performed via Telemedicine" This visit was performed using real-time audio and video connection between my location and thepatients locationwith the assistance of a surrogateat the patients location. Written or verbal consent was obtained from the patient/guardian to perform this visit using[employer] technology. Any patient questions regarding the telemedicine interaction were answered. Please note that this admission required greater than 48 minutes to complete.
[2024-10-18] MEDS ORDERED: Paxil 20 MG ONE (22:27)
[2024-10-18] MEDS: ECOTRIN 81 MG PO SCH (22:43)
[2024-10-18] MEDS: PAROXETINE HCL 30 MG PO SCH (22:43)
[2024-10-18] MEDS: Paxil 20 MG PO SCH (22:43)
[2024-10-18] MEDS: PROTONIX 40 MG IV IV SCH (22:44)
[2024-10-18] MEDS: Sodium Chloride 0.9% 1000 ML 1,000 ML IV SCH (22:44)
[2024-10-19 05:35] LABS: Hematocrit 51.7 % (40.1-51.0); Mean Cell Volume 87.5 fL (79.0-92.2); Mean Corpuscular Hemoglobin 28.8 pg (25.7-32.2); Mean Corpuscular Hgb Concent. 32.9 g/dL (32.3-36.5); Mean Platelet Volume 10.1 fL (9.4-12.4); Platelet Count 279 x10^3/uL (163-337); Red Blood Count 5.91 x10^6/uL (4.63-6.08); Red Cell Distribution Width 14.8 % (11.6-14.4)
[2024-10-19 05:40] LABS: White Blood Count 36.1 x10^3/uL (4.23-9.07)
[2024-10-19 05:54] LABS: ANION GAP 20.6 MEQ/L (5-15); BILIRUBIN,TOTAL 0.7 mg/dL (0.2-1.3); Calcium 7.5 mg/dL (8.4-10.2); Creatinine 1 2.36 mg/dL (0.66-1.25); EST GLOMERULAR FILTRATION RATE 30.6 ML/MIN; Potassium 3.6 mmol/L (3.5-5.1)
[2024-10-19] MEDS ORDERED: MEDICATION INTERVENTION MC SCH (07:00)
[2024-10-19] MEDS ORDERED: PROVENTIL 2.5 MG/3 ML NEB IH ONE (07:22)
[2024-10-19] MEDS: PROVENTIL 2.5 MG/3 ML NEB IH PRN (07:27)
[2024-10-19] MEDS: Advair Hfa 115/21 Common canister IH SCH (07:28)
[2024-10-19] MEDS: clonazePAM PO PRN (08:10)
[2024-10-19] MEDS: TYLENOL 325 MG PO PRN (09:59)
[2024-10-19] MEDS: KEPPRA PO SCH (10:00)
[2024-10-19] MEDS ORDERED: LEVETIRACETAM 1000 MG PO SCH (10:00)
[2024-10-19] MEDS ORDERED: NON-FORMULARY ITEM (Fluticasone/Umeclidin/Vilanter [Trelegy Ellipta 100-62.5-25] 1 EACH Bl IH SCH (10:00)
[2024-10-19] MEDS ORDERED: NON-FORMULARY ITEM (Atorvastatin Calcium [Atorvastatin Calcium] 80 MG Tablet) PO SCH (10:00)
[2024-10-19] MEDS: Docusate Sodium 100 MG PO SCH (10:01)
[2024-10-19] MEDS: ZOCOR 20MG PO SCH (10:01)
--- NOTE | 2024-10-19 10:07 | PCM.NOTE ---
Date and Time: 10/19/24 0954 Subjective Assessment: 10/19/24 is a 63 year old male with a PMHX of chronic leukemia (follows with Dr. Malcom Munoz with a baseline leukocytosis around 40K), diverticulosis, Charan Kline disease anxiety, and depression. He presented to the hospital with nausea, vomiting, and diarrhea symptoms, after leaving the ED AMA earlier and then returning. He was diagnosed with leukocytosis, dehydration and hemoconcentration, vomiting and diarrhea, and viral syndrome during the first ED visit today. He underwent a CT scan of the abdomen pelvis and it showed SBO versus ileus. The ED physician had spoken with the patient's bus starter, Dr. Malcom Gooden and his assessment was that the patient likely has a viral illness became dehydrated and hemoconcentrated after several episodes of vomiting and diarrhea. He denies chest pain and he denies shortness of breath. He also denied hematemesis, melena, or rectal bleeding. No fevers or chills are reported. Today he is feeling much better. He had 2 liquid BM's last night. Abd pain has resolved. TREVOR improving with IVF. Anion gap remains elevated Surgery consult pending. He denies CP, SOB, Abd. pain, N/V today. - Review of Systems Constitutional: No Fever, No Chills Eyes: No Symptoms Ears, Nose, & Throat: No Symptoms Respiratory: No Cough, No Short Of Breath Cardiac: No Chest Pain, No Edema, No Syncope Abdominal/Gastrointestinal: Diarrhea, No Abdominal Pain, No Nausea, No Vomiting Genitourinary Symptoms: No Dysuria Musculoskeletal: No Back Pain, No Neck Pain Skin: No Rash Neurological: No Dizziness, No Focal Weakness, No Sensory Changes Psychological: No Symptoms Endocrine: No Symptoms Hematologic/Lymphatic: No Symptoms Immunological/Allergic: No Symptoms Objective Exam General Appearance: no apparent distress, alert Neurologic Exam: alert, oriented x 3, cooperative, normal mood/affect, nml cerebellar function, sensation nml, No motor deficits Skin Exam: normal color, warm, dry Eye Exam: PERRL, EOMI, eyes nml inspection Ears, Nose, Throat Exam: normal ENT inspection, pharynx normal, moist mucous membranes Neck Exam: normal inspection, non-tender, supple, full range of motion Respiratory Exam: normal breath sounds, lungs clear, No respiratory distress Cardiovascular Exam: regular rate/rhythm, normal heart sounds Gastrointestinal/Abdomen Exam: soft, No tenderness, No mass Extremity Exam: normal inspection, normal range of motion Back Exam: normal inspection, normal range of motion, No CVA tenderness, No vertebral tenderness Male Genitalia Exam: deferred Rectal Exam: deferred Objective Data Vital Signs: Vital Signs - 24 hr Temp Pulse Resp BP BP Pulse Ox 10/19/24 08:00 98.7 F 128 H 22 96/60 92 L 10/19/24 07:35 130 H 18 92 L 10/19/24 04:00 97.8 F 116 H 21 108/74 92 L 10/19/24 00:36 92 L 10/18/24 23:05 114 H 18 92 L 10/18/24 21:49 97.0 F 119 H 20 109/69 91 L 10/18/24 21:00 116 H 115/82 93 L 10/18/24 20:30 114 H 98/74 92 L 10/18/24 20:00 112 H 18 99/74 93 L 10/18/24 19:51 108/78 94 L 10/18/24 19:00 114 H 18 117/82 95 10/18/24 18:38 96.8 F 97/73 10/18/24 18:37 97/73 94 L Pain Assessment - Last Documented Pain Intensity 5 Pain Scale Used 0-10 Pain Scale Intake and Output: Intake & Output 10/16/24 10/17/24 10/18/24 10/19/24 11:59 11:59 11:59 11:59 Intake Total 1149 Balance 1149 Weight 56.6 kg Lab Results: Lab Results-Last 24 Hours 10/19/24 10/19/24 Range/Units 05:15 05:15 WBC 36.1 H* (4.23-9.07) x10^3/uL RBC 5.91 (4.63-6.08) x10^6/uL Hgb 17.0 (13.7-17.5) g/dL Hct 51.7 H (40.1-51.0) % MCV 87.5 (79.0-92.2) fL MCH 28.8 (25.7-32.2) pg MCHC 32.9 (32.3-36.5) g/dL RDW 14.8 H (11.6-14.4) % Plt Count 279 (163-337) x10^3/uL MPV 10.1 (9.4-12.4) fL Sodium 140 (135-145) mmol/L Potassium 3.6 (3.5-5.1) mmol/L Chloride 104 (98-107) mmol/L Carbon Dioxide 19 L (22-30) mmol/L Anion Gap 20.6 H (5-15) MEQ/L BUN 53 H (9-20) mg/dL Creatinine 2.36 H (0.66-1.25) mg/dL Estimated GFR 30.6 ML/MIN Glucose 115 H (74-106) mg/dL Calcium 7.5 L D (8.4-10.2) mg/dL Total Bilirubin 0.70 (0.2-1.3) mg/dL AST 27 (17-59) U/L ALT 25 (0-50) U/L Alkaline Phosphatase 103 (38-126) U/L Serum Total Protein 7.0 (6.3-8.2) g/dL Albumin 4.0 (3.5-5.0) g/dL Assessment/Plan (1) Ileus Current Visit: Yes Status: Acute Assessment & Plan: - Bowel rest. IV fluids. - NPO except meds with sips. - IV PPI - Surgery for consultation - CT abd/ pelvis: Impression: 1. Abnormal fluid distended stomach and small bowel loops to level of the pelvis favoring distal small bowel obstruction. 2. Chronic findings including pulmonary emphysema, atelectasis/scarring, arteriosclerotic disease, and chronic bony findings. - Dilaudid IV for pain PRN - Abd. pain improved today - IVF - consider repeat imaging Code(s): K56.7 - ILEUS, UNSPECIFIED (2) Dehydration Current Visit: Yes Status: Acute Assessment & Plan: - anion gap 20.6 - IVF Code(s): E86.0 - DEHYDRATION (3) Leukocytosis Current Visit: Yes Status: Acute Assessment & Plan: - WBC improving 36.1 - Chronic leukemia. - Baseline WBC 40K. - Suspect component of hemoconcentration from dehydration. 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 Nix - adds to complexity VTE: SCD's PPI: protonix Next of KIN: D/C plan: tomorrow Code status: Full Code(s): C95.90 - LEUKEMIA, UNSPECIFIED NOT HAVING ACHIEVED REMISSION
[2024-10-19] MEDS: VENTOLIN COMMON CANISTER IH SCH (10:55)
[2024-10-19] MEDS: PATIENT OWN MEDICATION IH SCH (11:15)
[2024-10-19] MEDS: Hydromorphone 1 mg/ml Injection IV PRN (11:20)
[2024-10-19] MEDS: Lactated Ringers 1,000 ML IV SCH (18:11)
[2024-10-19] MEDS: Ativan 2 MG/1 ML VIAL IV PRN (21:30)
[2024-10-19] MEDS: PROTONIX 40 MG IV IV SCH (21:30)
[2024-10-20 05:32] LABS: Hematocrit 48.7 % (40.1-51.0); Mean Cell Volume 86.2 fL (79.0-92.2); Mean Corpuscular Hemoglobin 28.3 pg (25.7-32.2); Mean Corpuscular Hgb Concent. 32.9 g/dL (32.3-36.5); Mean Platelet Volume 10.6 fL (9.4-12.4); Platelet Count 215 x10^3/uL (163-337); Red Blood Count 5.65 x10^6/uL (4.63-6.08); Red Cell Distribution Width 14.8 % (11.6-14.4); White Blood Count 24.6 x10^3/uL (4.23-9.07)
[2024-10-20 05:56] LABS: ALBUMIN 3.5 g/dL (3.5-5.0); ANION GAP 18.6 MEQ/L (5-15); BILIRUBIN,TOTAL 0.8 mg/dL (0.2-1.3); Calcium 7.1 mg/dL (8.4-10.2); Creatinine 1 1.55 mg/dL (0.66-1.25); EST GLOMERULAR FILTRATION RATE 50.6 ML/MIN; Potassium 3.9 mmol/L (3.5-5.1); Total Protein 6.6 g/dL (6.3-8.2)
--- NOTE | 2024-10-20 08:43 | XRAY ---
Indication: NG tube placement. Comparison: None 2 view abdomen nonacute and nonobstructed with NG tube tip in stomach. Solid organs unremarkable. Osseous structures intact with osteopenia and mild degenerative changes. Lung bases demonstrates incidental mild bibasilar pleural effusion/thickening.
--- NOTE | 2024-10-20 10:05 | PCM.NOTE ---
Date and Time: 10/20/24 0959 Subjective Assessment: 10/19/24 is a 63 year old male with a PMHX of chronic leukemia (follows with Dr. Malcom Munoz with a baseline leukocytosis around 40K), diverticulosis, Charan Kline disease anxiety, and depression. He presented to the hospital with nausea, vomiting, and diarrhea symptoms, after leaving the ED AMA earlier and then returning. He was diagnosed with leukocytosis, dehydration and hemoconcentration, vomiting and diarrhea, and viral syndrome during the first ED visit today. He underwent a CT scan of the abdomen pelvis and it showed SBO versus ileus. The ED physician had spoken with the patient's lock expert, Dr. Malcom Gooden and his assessment was that the patient likely has a viral illness became dehydrated and hemoconcentrated after several episodes of vomiting and diarrhea. He denies chest pain and he denies shortness of breath. He also denied hematemesis, melena, or rectal bleeding. No fevers or chills are reported. Today he is feeling much better. He had 2 liquid BM's last night. Abd pain has resolved. TREVOR improving with IVF. Anion gap remains elevated Surgery consult pending. He denies CP, SOB, Abd. pain, N/V today. 10/20/24 Pt resting in bed. NG placed last night and 3075 ml out. HR remained around 130 all night, metoprolol BID started. No diarrhea overnight.Pt continues to be dehydrated- continue IVF. GS consulted yesterday and plan today is to do CT imaging with contrast for further evaluation. Pain is better controlled today. TREVOR improving with IVF. Pt denies CP, SOB, N/V/D. - Review of Systems Constitutional: No Fever, No Chills Eyes: No Symptoms Ears, Nose, & Throat: No Symptoms Respiratory: No Cough, No Short Of Breath Cardiac: No Chest Pain, No Edema, No Syncope Abdominal/Gastrointestinal: Abdominal Pain, No Nausea, No Vomiting, No Diarrhea Genitourinary Symptoms: No Dysuria Musculoskeletal: No Back Pain, No Neck Pain Skin: No Rash Neurological: No Dizziness, No Focal Weakness, No Sensory Changes Psychological: No Symptoms Endocrine: No Symptoms Hematologic/Lymphatic: No Symptoms Immunological/Allergic: No Symptoms Objective Exam General Appearance: no apparent distress, alert Neurologic Exam: alert, oriented x 3, cooperative, normal mood/affect, nml cerebellar function, sensation nml, No motor deficits Skin Exam: normal color, warm, dry Eye Exam: PERRL, EOMI, eyes nml inspection Ears, Nose, Throat Exam: normal ENT inspection, pharynx normal, moist mucous membranes Neck Exam: normal inspection, non-tender, supple, full range of motion Respiratory Exam: normal breath sounds, lungs clear, No respiratory distress Cardiovascular Exam: regular rate/rhythm, normal heart sounds Gastrointestinal/Abdomen Exam: soft, No tenderness, No mass Extremity Exam: normal inspection, normal range of motion Back Exam: normal inspection, normal range of motion, No CVA tenderness, No vertebral tenderness Male Genitalia Exam: deferred Rectal Exam: deferred Objective Data Vital Signs: Vital Signs - 24 hr Temp Pulse Resp BP BP Pulse Ox 10/20/24 07:07 136 H 25 H 10/20/24 07:05 97.7 F 133 H 16 119/73 91 L 10/20/24 05:06 138 H 22 91 L 10/20/24 04:00 98.0 F 131 H 19 108/77 93 L 10/20/24 01:50 132 H 26 H 10/19/24 23:38 98.2 F 133 H 21 106/69 10/19/24 21:30 132 H 25 H 87/60 10/19/24 20:00 98.0 F 129 H 21 85/52 92 L 10/19/24 17:08 132 H 24 92 L 10/19/24 16:00 97.8 F 131 H 22 79/47 91 L 10/19/24 15:44 126 H 20 93 L 10/19/24 12:00 98.3 F 130 H 20 80/50 92 L 10/19/24 11:21 128 H 20 92 L Pain Assessment - Last Documented Pain Intensity 7 Pain Scale Used 0-10 Pain Scale Intake and Output: Intake & Output 10/17/24 10/18/24 10/19/24 10/20/24 11:59 11:59 11:59 11:59 Intake Total 1149 2739 Output Total 1021 Balance 1149 -336 Weight 56.6 kg Lab Results: Lab Results-Last 24 Hours 10/20/24 10/20/24 Range/Units 05:25 05:25 WBC 24.6 H (4.23-9.07) x10^3/uL RBC 5.65 (4.63-6.08) x10^6/uL Hgb 16.0 (13.7-17.5) g/dL Hct 48.7 (40.1-51.0) % MCV 86.2 (79.0-92.2) fL MCH 28.3 (25.7-32.2) pg MCHC 32.9 (32.3-36.5) g/dL RDW 14.8 H (11.6-14.4) % Plt Count 215 (163-337) x10^3/uL MPV 10.6 (9.4-12.4) fL Sodium 141 (135-145) mmol/L Potassium 3.9 (3.5-5.1) mmol/L Chloride 107 (98-107) mmol/L Carbon Dioxide 19 L (22-30) mmol/L Anion Gap 18.6 H (5-15) MEQ/L BUN 66 H (9-20) mg/dL Creatinine 1.55 H (0.66-1.25) mg/dL Estimated GFR 50.6 ML/MIN Glucose 83 (74-106) mg/dL Calcium 7.1 L (8.4-10.2) mg/dL Total Bilirubin 0.80 (0.2-1.3) mg/dL AST 42 (17-59) U/L ALT 23 (0-50) U/L Alkaline Phosphatase 82 (38-126) U/L Serum Total Protein 6.6 (6.3-8.2) g/dL Albumin 3.5 (3.5-5.0) g/dL Radiology Exams: Radiology Procedures Category Date Time Status ABDOMEN 2 VIEW Urgent Exams 10/19/24 19:43 Completed Multi-Disciplinary Progress Notes: Multi-Disciplinary Progress Notes 10/19/24 23:33 Respiratory Note by Felisa Yusuf SpO2 on room air at rest 86%. Placed on 3L oxymask. SpO2 increased to 93% Initialized on 10/19/24 23:33 - END OF NOTE 10/19/24 13:36 Physical Therapy Note by Diamond(L#[id number]),Suzan SPOKE W/ PT. AND SPOUSE THIS DATE. THEY REPORT THEY HAVE ALL OF THE EQUIPMENT THEY NEED TO FUNCTION AT HOME. DIRECTOR DIGITAL ANALYTICS REPORTED HE HAS BEEN PERFORMING FUCNTIONAL MOBILTY WELL IN ROOM. PT. C/O SEVERE T-SPINE AND LBP AND IS AWAITING SX CONSULT FOR ABD PN. WILL MONITOR BUT HOLDING EVAL TODAY D/T ABD PN. Initialized on 10/19/24 13:36 - END OF NOTE 10/19/24 11:22 Respiratory Note by Vidya Avina PATIENT'S STATES PATIENT'S LIPS ARE TINGLING AND BOTTOM LIP LOOKS SWOLLEN AND TONGUE IS PURPLE AND PATIENT SOUNDS WEIRD WHEN HE IS TALKING. PATIENT'S TONGUE IS PURPLE AND BOTTOM LIP DOES LOOK SWOLLEN. PATIENT STATES IT STARTED AFTER HE TOOK HIS HOME TRELEGY. PATIENT HAS TAKEN TRELEGY FOR SEVERAL YEARS. 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 IV fluids. - NPO except meds with sips. - IV PPI - Surgery for consultation - CT abd/ pelvis: Impression: 1. Abnormal fluid distended stomach and small bowel loops to level of the pelvis favoring distal small bowel obstruction. 2. Chronic findings including pulmonary emphysema, atelectasis/scarring, arteriosclerotic disease, and chronic bony findings. - Dilaudid IV for pain PRN - Abd. pain improved today - IVF - consider repeat imaging 10/20 - Imaging with contrast per surgery today - NG placed yesterday with 3075ml out since placed Code(s): K56.7 - ILEUS, UNSPECIFIED (2) Dehydration Current Visit: Yes Status: Acute Assessment & Plan: - anion gap 20.6 - IVF 10/20 - anion gap 18.6- improving Code(s): E86.0 - DEHYDRATION (3) Leukocytosis Current Visit: Yes Status: Acute Assessment & Plan: - WBC improving 36.1 - Chronic leukemia. - Baseline WBC 40K. - Suspect component of hemoconcentration from dehydration. 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 Nix - adds to complexity VTE: SCD's PPI: protonix Next of KIN: D/C plan: 2-3 days Code status: Full Code(s): C95.90 - LEUKEMIA, UNSPECIFIED NOT HAVING ACHIEVED REMISSION
[2024-10-20] MEDS: Lopressor 25MG Tab PO SCH ×2 (12:23→12:40)
[2024-10-20] MEDS: VENTOLIN COMMON CANISTER IH PRN (15:50)
[2024-10-20] MEDS ORDERED: Lactated Ringers 1,000 ML IV ONE (19:51)
[2024-10-20] MEDS: Lactated Ringers 1,000 ML IV SCH (19:52)
[2024-10-20] MEDS: KEPPRA PO SCH (21:10)
[2024-10-21 06:07] LABS: Hematocrit 41.1 % (40.1-51.0); Hemoglobin 13.5 g/dL (13.7-17.5); Mean Cell Volume 87.4 fL (79.0-92.2); Mean Corpuscular Hemoglobin 28.7 pg (25.7-32.2); Mean Corpuscular Hgb Concent. 32.8 g/dL (32.3-36.5); Platelet Count 200 x10^3/uL (163-337)
[2024-10-21 06:26] LABS: ANION GAP 17.3 MEQ/L (5-15); BILIRUBIN,TOTAL 0.9 mg/dL (0.2-1.3); Calcium 7.5 mg/dL (8.4-10.2); Creatinine 1 1.09 mg/dL (0.66-1.25); EST GLOMERULAR FILTRATION RATE 77.2 ML/MIN; Potassium 3.2 mmol/L (3.5-5.1); Total Protein 5.7 g/dL (6.3-8.2); White Blood Count 26.9 x10^3/uL (4.23-9.07)
[2024-10-21] MEDS: POTASSIUM CHLORIDE 20 mEq IN WATER 100ML 20 MEQ/100 ML BAG IV SCH (06:52)
[2024-10-21] MEDS ORDERED: POTASSIUM CHLORIDE 20 mEq IN WATER 100ML 100 ML IV SCH (07:30)
[2024-10-21] MEDS: Lopressor 25MG Tab PO SCH (10:29)
--- NOTE | 2024-10-21 10:47 | PCM.NOTE ---
Date and Time: 10/21/24 1040 Subjective Assessment: 10/19/24 is a 63 year old male with a PMHX of chronic leukemia (follows with Dr. Malcom Munoz with a baseline leukocytosis around 40K), diverticulosis, Charan Kline disease anxiety, and depression. He presented to the hospital with nausea, vomiting, and diarrhea symptoms, after leaving the ED AMA earlier and then returning. He was diagnosed with leukocytosis, dehydration and hemoconcentration, vomiting and diarrhea, and viral syndrome during the first ED visit today. He underwent a CT scan of the abdomen pelvis and it showed SBO versus ileus. The ED physician had spoken with the patient's infection control preventionist, Dr. Malcom Gooden and his assessment was that the patient likely has a viral illness became dehydrated and hemoconcentrated after several episodes of vomiting and diarrhea. He denies chest pain and he denies shortness of breath. He also denied hematemesis, melena, or rectal bleeding. No fevers or chills are reported. Today he is feeling much better. He had 2 liquid BM's last night. Abd pain has resolved. TREVOR improving with IVF. Anion gap remains elevated Surgery consult pending. He denies CP, SOB, Abd. pain, N/V today. 10/20/24 Pt resting in bed. NG placed last night and 3075 ml out. HR remained around 130 all night, metoprolol BID started. No diarrhea overnight.Pt continues to be dehydrated- continue IVF. GS consulted yesterday and plan today is to do CT imaging with contrast for further evaluation. Pain is better controlled today. TREVOR improving with IVF. Pt denies CP, SOB, N/V/D. 10/21/24 Pt resting in bed. K+ 3.2 and replaced. Bicarb 17 and bicarb gtt started. Metoprolol increased as HR continued to be elevated. Dr. Vasques explained he would like imaging with oral contrast today to see the status of SBO. Continue NG to LIS. Consider starting PPN. Pt states pain is controlled. He c/o being thirsty and allowed to have a small amount of ice chips daily per GS. Pt denies any further concerns at this time. - Review of Systems Constitutional: No Fever, No Chills Eyes: No Symptoms Ears, Nose, & Throat: No Symptoms Respiratory: No Cough, No Short Of Breath Cardiac: No Chest Pain, No Edema, No Syncope Abdominal/Gastrointestinal: No Nausea, No Vomiting, No Diarrhea Genitourinary Symptoms: No Dysuria Musculoskeletal: No Back Pain, No Neck Pain Skin: No Rash Neurological: No Dizziness, No Focal Weakness, No Sensory Changes Psychological: No Symptoms Endocrine: No Symptoms Hematologic/Lymphatic: No Symptoms Immunological/Allergic: No Symptoms Objective Exam General Appearance: no apparent distress, alert Neurologic Exam: alert, oriented x 3, cooperative, normal mood/affect, nml cerebellar function, sensation nml, No motor deficits Skin Exam: normal color, warm, dry Eye Exam: PERRL, EOMI, eyes nml inspection Ears, Nose, Throat Exam: normal ENT inspection, pharynx normal, moist mucous membranes Neck Exam: normal inspection, non-tender, supple, full range of motion Respiratory Exam: normal breath sounds, lungs clear, No respiratory distress Cardiovascular Exam: regular rate/rhythm, normal heart sounds Gastrointestinal/Abdomen Exam: soft, No tenderness, No mass Extremity Exam: normal inspection, normal range of motion Back Exam: normal inspection, normal range of motion, No CVA tenderness, No vertebral tenderness Male Genitalia Exam: deferred Rectal Exam: deferred Objective Data Vital Signs: Vital Signs - 24 hr Temp Pulse Resp BP Pulse Ox 10/21/24 07:59 114 H 18 91 L 10/21/24 07:06 98.2 F 110 H 21 118/73 94 L 10/21/24 04:00 98.1 F 117 H 17 123/68 93 L 10/21/24 03:22 91 H 16 92 L 10/20/24 23:46 114 H 20 115/68 10/20/24 19:43 98.7 F 116 H 18 103/71 91 L 10/20/24 18:14 118 H 18 91 L 10/20/24 16:00 97.8 F 116 H 18 117/73 90 L 10/20/24 15:50 120 H 19 91 L 10/20/24 12:00 97.6 F 134 H 16 112/69 90 L Pain Assessment - Last Documented Pain Intensity 7 Pain Scale Used 0-10 Pain Scale Intake and Output: Intake & Output 10/18/24 10/19/24 10/20/24 10/21/24 11:59 11:59 11:59 11:59 Intake Total 1149 2739 4297 Output Total 3607 1621 Balance 4196 -796 -136 Weight 56.6 kg 56.6 kg Lab Results: Lab Results-Last 24 Hours 10/21/24 10/21/24 10/21/24 Range/Units 05:30 05:30 09:21 WBC 26.9 H* (4.23-9.07) x10^3/uL RBC 4.70 (4.63-6.08) x10^6/uL Hgb 13.5 L (13.7-17.5) g/dL Hct 41.1 (40.1-51.0) % MCV 87.4 (79.0-92.2) fL MCH 28.7 (25.7-32.2) pg MCHC 32.8 (32.3-36.5) g/dL RDW 15.0 H (11.6-14.4) % Plt Count 200 (163-337) x10^3/uL MPV 10.0 (9.4-12.4) fL Sodium 146 H (135-145) mmol/L Potassium 3.2 L (3.5-5.1) mmol/L Chloride 114 H (98-107) mmol/L Carbon Dioxide 17 L (22-30) mmol/L Anion Gap 17.3 H (5-15) MEQ/L BUN 40 H (9-20) mg/dL Creatinine 1.09 (0.66-1.25) mg/dL Estimated GFR 77.2 ML/MIN Glucose 77 (74-106) mg/dL Calcium 7.5 L (8.4-10.2) mg/dL Magnesium 2.2 (1.6-2.3) mg/dL Total Bilirubin 0.90 (0.2-1.3) mg/dL AST 39 (17-59) U/L ALT 18 (0-50) U/L Alkaline Phosphatase 79 (38-126) U/L Serum Total Protein 5.7 L (6.3-8.2) g/dL Albumin 3.0 L (3.5-5.0) g/dL Radiology Exams: Radiology Procedures Category Date Time Status ABDOMEN 2 VIEW Urgent Exams 10/19/24 19:43 Completed KUB Urgent Exams 10/21/24 12:30 Ordered KUB Urgent Exams 01/18/25 20:30 Ordered Assessment/Plan (1) Ileus Current Visit: Yes Status: Acute Code(s): K56.7 - ILEUS, UNSPECIFIED (2) Dehydration Current Visit: Yes Status: Acute Code(s): E86.0 - DEHYDRATION (3) Leukocytosis Current Visit: Yes Status: Acute Code(s): D72.829 - ELEVATED WHITE BLOOD CELL COUNT, UNSPECIFIED (4) Vomiting and diarrhea Current Visit: Yes Status: Acute Code(s): R11.10 - VOMITING, UNSPECIFIED; R19.7 - DIARRHEA, UNSPECIFIED (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 IV fluids. - NPO except meds with sips. - IV PPI - Surgery for consultation - CT abd/ pelvis: Impression: 1. Abnormal fluid distended stomach and small bowel loops to level of the pelvis favoring distal small bowel obstruction. 2. Chronic findings including pulmonary emphysema, atelectasis/scarring, arteriosclerotic disease, and chronic bony findings. - Dilaudid IV for pain PRN - Abd. pain improved today - IVF - consider repeat imaging 10/20 - Imaging with contrast per surgery today - NG placed yesterday with 3075ml out since placed 10/21 - Radiology imaging today with oral contrast per GS order - Continue NG to LIS - Consider PPN Code(s): K56.7 - ILEUS, UNSPECIFIED (2) Dehydration Current Visit: Yes Status: Acute Assessment & Plan: - anion gap 20.6 - IVF 10/20 - anion gap 18.6- improving 10/21 - anion gap 17.3 Code(s): E86.0 - DEHYDRATION (3) Leukocytosis Current Visit: Yes Status: Acute Assessment & Plan: - WBC improving 36.1 - Chronic leukemia. - Baseline WBC 40K. - Suspect component of hemoconcentration from dehydration. 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 Nix - adds to complexity Code(s): C95.90 - LEUKEMIA, UNSPECIFIED NOT HAVING ACHIEVED REMISSION Code(s): C95.90 - LEUKEMIA, UNSPECIFIED NOT HAVING ACHIEVED REMISSION (7) Hypokalemia Current Visit: Yes Status: Acute Assessment & Plan: - K+ 3.2- replaced- trend Code(s): E87.6 - HYPOKALEMIA (8) TREVOR (acute kidney injury) Current Visit: Yes Status: Resolved Assessment & Plan: - resolved Code(s): N17.9 - ACUTE KIDNEY FAILURE, UNSPECIFIED (9) Metabolic acidosis Current Visit: Yes Status: Acute Assessment & Plan: - Co2 17 - started sodium bicarb gtt VTE: SCD's PPI: protonix Next of KIN: D/C plan: 2-3 days Code status: Full Code(s): E87.20 - ACIDOSIS, UNSPECIFIED
[2024-10-21] MEDS: Sodium Bicarbonate 50 MEQ/50 ML VIAL*** 150 MEQ in Dextrose 5%/Water IV Soln. 1000 ML 1... IV SCH (11:21)
--- NOTE | 2024-10-21 22:27 | XRAY ---
CLINICAL HISTORY: bowel obstruction COMPARISON: No prior studies are available for comparison. TECHNIQUE: X-ray images of the abdomen were obtained in AP supine positions. FINDINGS: Gas Pattern: A contrast-filled prominent small bowel gut loops in the abdomen with a paucity of gas distally in the pelvis. No evidence of air-fluid levels. No evidence of pneumoperitoneum. Soft Tissues: Soft tissues of the abdomen appear normal without evidence of masses or calcifications. IMPRESSION: 1. A contrast-filled prominent small bowel gut loops in the abdomen with a paucity of gas distally in the pelvis. Findings suggest slow transit of contrast through small bowel loops. 2. No evidence of air-fluid levels or pneumoperitoneum in the current study. 3. If clinically warranted a CT abdomen is suggested. Electronically Signed by: Sophie Quintero MD. (10/21/2024 22:23:04 EST)
[2024-10-22 06:29] LABS: Hemoglobin 12.9 g/dL (13.7-17.5); Mean Cell Volume 86.5 fL (79.0-92.2); Mean Corpuscular Hemoglobin 28.6 pg (25.7-32.2); Mean Corpuscular Hgb Concent. 33.1 g/dL (32.3-36.5); Mean Platelet Volume 10.3 fL (9.4-12.4); Platelet Count 194 x10^3/uL (163-337); Red Blood Count 4.51 x10^6/uL (4.63-6.08); Red Cell Distribution Width 15.3 % (11.6-14.4)
[2024-10-22 06:38] LABS: White Blood Count 29.5 x10^3/uL (4.23-9.07)
[2024-10-22 06:44] LABS: ALBUMIN 2.9 g/dL (3.5-5.0); ANION GAP 8.2 MEQ/L (5-15); BILIRUBIN,TOTAL 1.1 mg/dL (0.2-1.3); Calcium 7.6 mg/dL (8.4-10.2); Creatinine 1 0.92 mg/dL (0.66-1.25); EST GLOMERULAR FILTRATION RATE 94.6 ML/MIN; Potassium 3.1 mmol/L (3.5-5.1); Total Protein 5.6 g/dL (6.3-8.2)
[2024-10-22] MEDS: Klor Con PO SCH (08:08)
[2024-10-22] MEDS: Lactated Ringers 1,000 ML IV SCH (08:08)
--- NOTE | 2024-10-22 09:52 | PCM.NOTE ---
Date and Time: 10/22/24 0946 Subjective Assessment: 10/19/24 is a 63 year old male with a PMHX of chronic leukemia (follows with Dr. Malcom Munoz with a baseline leukocytosis around 40K), diverticulosis, Charan Kline disease anxiety, and depression. He presented to the hospital with nausea, vomiting, and diarrhea symptoms, after leaving the ED AMA earlier and then returning. He was diagnosed with leukocytosis, dehydration and hemoconcentration, vomiting and diarrhea, and viral syndrome during the first ED visit today. He underwent a CT scan of the abdomen pelvis and it showed SBO versus ileus. The ED physician had spoken with the patient's kiln tester, Dr. Malcom Gooden and his assessment was that the patient likely has a viral illness became dehydrated and hemoconcentrated after several episodes of vomiting and diarrhea. He denies chest pain and he denies shortness of breath. He also denied hematemesis, melena, or rectal bleeding. No fevers or chills are reported. Today he is feeling much better. He had 2 liquid BM's last night. Abd pain has resolved. TREVOR improving with IVF. Anion gap remains elevated Surgery consult pending. He denies CP, SOB, Abd. pain, N/V today. 10/20/24 Pt resting in bed. NG placed last night and 3075 ml out. HR remained around 130 all night, metoprolol BID started. No diarrhea overnight.Pt continues to be dehydrated- continue IVF. GS consulted yesterday and plan today is to do CT imaging with contrast for further evaluation. Pain is better controlled today. TREVOR improving with IVF. Pt denies CP, SOB, N/V/D. 10/21/24 Pt resting in bed. K+ 3.2 and replaced. Bicarb 17 and bicarb gtt started. Metoprolol increased as HR continued to be elevated. Dr. Vasques explained he would like imaging with oral contrast today to see the status of SBO. Continue NG to LIS. Consider starting PPN. Pt states pain is controlled. He c/o being thirsty and allowed to have a small amount of ice chips daily per GS. Pt denies any further concerns at this time. 10/22/24 Pt resting in bed. He is feeling much better today. Awaiting GS consult today to see if NG can be removed and diet started. PT has had multiple soft BM's overnight. He denies abd pain, N/V/D. Metabolic acidosis resolved and IV fluids stopped. Changed IVF to LR. K+ 3.1 and replaced. Corrected calcium 8.1- tums tabs started. He denies any further concerns at this time. - Review of Systems Constitutional: No Fever, No Chills Eyes: No Symptoms Ears, Nose, & Throat: No Symptoms Respiratory: No Cough, No Short Of Breath Cardiac: No Chest Pain, No Edema, No Syncope Abdominal/Gastrointestinal: No Abdominal Pain, No Nausea, No Vomiting, No Diarrhea Genitourinary Symptoms: No Dysuria Musculoskeletal: No Back Pain, No Neck Pain Skin: No Rash Neurological: No Dizziness, No Focal Weakness, No Sensory Changes Psychological: No Symptoms Endocrine: No Symptoms Hematologic/Lymphatic: No Symptoms Immunological/Allergic: No Symptoms Objective Exam General Appearance: no apparent distress, alert Neurologic Exam: alert, oriented x 3, cooperative, normal mood/affect, nml cerebellar function, sensation nml, No motor deficits Skin Exam: normal color, warm, dry Eye Exam: PERRL, EOMI, eyes nml inspection Ears, Nose, Throat Exam: normal ENT inspection, pharynx normal, moist mucous membranes Neck Exam: normal inspection, non-tender, supple, full range of motion Respiratory Exam: normal breath sounds, lungs clear, No respiratory distress Cardiovascular Exam: regular rate/rhythm, normal heart sounds Gastrointestinal/Abdomen Exam: soft, No tenderness, No mass Extremity Exam: normal inspection, normal range of motion Back Exam: normal inspection, normal range of motion, No CVA tenderness, No vertebral tenderness Male Genitalia Exam: deferred Rectal Exam: deferred Objective Data Vital Signs: Vital Signs - 24 hr Temp Pulse Resp BP BP Pulse Ox 10/22/24 07:25 98.0 F 112 H 23 102/68 91 L 10/22/24 06:41 112 H 18 91 L 10/22/24 04:00 98.8 F 106 H 18 107/68 90 L 10/22/24 02:54 94 H 18 92 L 10/21/24 22:00 102 H 20 92/58 10/21/24 19:33 98.5 F 103 H 14 90/61 90 L 10/21/24 16:22 100 H 18 93/66 10/21/24 16:00 96.7 F 100 H 18 93/66 91 L 10/21/24 14:26 95 H 18 92 L 10/21/24 11:21 98.2 F 107 H 23 116/71 91 L Pain Assessment - Last Documented Pain Intensity 0 Pain Scale Used 0-10 Pain Scale Intake and Output: Intake & Output 10/19/24 10/20/24 10/21/24 10/22/24 11:59 11:59 11:59 11:59 Intake Total 1142 8539 1859 0952 Output Total 6784 0093 7711 Balance 1149 -336 -353 -838 Weight 56.6 kg 56.6 kg Lab Results: Lab Results-Last 24 Hours 10/21/24 10/21/24 10/22/24 Range/Units 09:21 18:49 06:27 WBC (4.23-9.07) x10^3/uL RBC (4.63-6.08) x10^6/uL Hgb (13.7-17.5) g/dL Hct (40.1-51.0) % MCV (79.0-92.2) fL MCH (25.7-32.2) pg MCHC (32.3-36.5) g/dL RDW (11.6-14.4) % Plt Count (163-337) x10^3/uL MPV (9.4-12.4) fL Sodium (135-145) mmol/L Potassium 3.5 (3.5-5.1) mmol/L Chloride (98-107) mmol/L Carbon Dioxide (22-30) mmol/L Anion Gap (5-15) MEQ/L BUN (9-20) mg/dL Creatinine (0.66-1.25) mg/dL Estimated GFR ML/MIN Glucose (74-106) mg/dL Calcium (8.4-10.2) mg/dL Magnesium 2.2 2.2 (1.6-2.3) mg/dL Total Bilirubin (0.2-1.3) mg/dL AST (17-59) U/L ALT (0-50) U/L Alkaline Phosphatase (38-126) U/L Serum Total Protein (6.3-8.2) g/dL Albumin (3.5-5.0) g/dL 10/22/24 10/22/24 10/22/24 Range/Units 06:27 06:27 06:27 WBC 29.5 H* (4.23-9.07) x10^3/uL RBC 4.51 L (4.63-6.08) x10^6/uL Hgb 12.9 L (13.7-17.5) g/dL Hct 39.0 L (40.1-51.0) % MCV 86.5 (79.0-92.2) fL MCH 28.6 (25.7-32.2) pg MCHC 33.1 (32.3-36.5) g/dL RDW 15.3 H (11.6-14.4) % Plt Count 194 (163-337) x10^3/uL MPV 10.3 (9.4-12.4) fL Sodium 145 (135-145) mmol/L Potassium 3.1 L Cancelled (3.5-5.1) mmol/L Chloride 103 (98-107) mmol/L Carbon Dioxide 37 H (22-30) mmol/L Anion Gap 8.2 (5-15) MEQ/L BUN 34 H (9-20) mg/dL Creatinine 0.92 (0.66-1.25) mg/dL Estimated GFR 94.6 ML/MIN Glucose 129 H (74-106) mg/dL Calcium 7.6 L (8.4-10.2) mg/dL Magnesium (1.6-2.3) mg/dL Total Bilirubin 1.10 (0.2-1.3) mg/dL AST 41 (17-59) U/L ALT 20 (0-50) U/L Alkaline Phosphatase 76 (38-126) U/L Serum Total Protein 5.6 L (6.3-8.2) g/dL Albumin 2.9 L (3.5-5.0) g/dL Radiology Exams: Radiology Procedures Category Date Time Status KUB Urgent Exams 10/21/24 12:30 Completed KUB Urgent Exams 10/21/24 20:30 Taken Assessment/Plan (1) Ileus Current Visit: Yes Status: Acute Code(s): K56.7 - ILEUS, UNSPECIFIED (2) Dehydration Current Visit: Yes Status: Acute Code(s): E86.0 - DEHYDRATION (3) Leukocytosis Current Visit: Yes Status: Acute Code(s): D72.829 - ELEVATED WHITE BLOOD CELL COUNT, UNSPECIFIED (4) Vomiting and diarrhea Current Visit: Yes Status: Acute Code(s): R11.10 - VOMITING, UNSPECIFIED; R19.7 - DIARRHEA, UNSPECIFIED (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 IV fluids. - NPO except meds with sips. - IV PPI - Surgery for consultation - CT abd/ pelvis: Impression: 1. Abnormal fluid distended stomach and small bowel loops to level of the pelvis favoring distal small bowel obstruction. 2. Chronic findings including pulmonary emphysema, atelectasis/scarring, arteriosclerotic disease, and chronic bony findings. - Dilaudid IV for pain PRN - Abd. pain improved today - IVF - consider repeat imaging 10/20 - Imaging with contrast per surgery today - NG placed yesterday with 3075ml out since placed 10/21 - Radiology imaging today with oral contrast per order - Continue NG to LIS - Consider PPN 10/22 - radiology results reviewed - GS recs pending - + multiple soft BM's last night and 1 today. - NG remains in place for now. - LR@ 75ml/hr Code(s): K56.7 - ILEUS, UNSPECIFIED (2) Dehydration Current Visit: Yes Status: Acute Assessment & Plan: - anion gap 20.6 - IVF 10/20 - anion gap 18.6- improving 10/21 - anion gap 17.3 10/22 - resolved Code(s): E86.0 - DEHYDRATION (3) Leukocytosis Current Visit: Yes Status: Acute Assessment & Plan: - WBC improving 36.1 - Chronic leukemia. - Baseline WBC 40K. - Suspect component of hemoconcentration from dehydration. 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 Nix - adds to complexity Code(s): C95.90 - LEUKEMIA, UNSPECIFIED NOT HAVING ACHIEVED REMISSION (7) Hypokalemia Current Visit: Yes Status: Acute Assessment & Plan: - K+ 3.2- replaced- trend - repeat K+ 3.5 10/22 - K+ 3.1- replaced- trend Code(s): E87.6 - HYPOKALEMIA (8) TREVOR (acute kidney injury) Current Visit: Yes Status: Resolved Assessment & Plan: - resolved Code(s): N17.9 - ACUTE KIDNEY FAILURE, UNSPECIFIED (9) Metabolic acidosis Current Visit: Yes Status: Acute Assessment & Plan: - Co2 17 - started sodium bicarb gtt 10/22 - resolved - bicarb gtt stopped VTE: SCD's PPI: protonix Next of KIN: D/C plan: 1-2 days Code status: Full Code(s): E87.20 - ACIDOSIS, UNSPECIFIED Code(s): E87.20 - ACIDOSIS, UNSPECIFIED
[2024-10-22] MEDS: Tums EX 750 MG PO SCH (10:08)
[2024-10-23 05:06] LABS: Hemoglobin 12.9 g/dL (13.7-17.5); Mean Cell Volume 88.5 fL (79.0-92.2); Mean Corpuscular Hemoglobin 28.5 pg (25.7-32.2); Mean Corpuscular Hgb Concent. 32.3 g/dL (32.3-36.5); Mean Platelet Volume 10.4 fL (9.4-12.4); Platelet Count 203 x10^3/uL (163-337); Red Blood Count 4.52 x10^6/uL (4.63-6.08); Red Cell Distribution Width 15.5 % (11.6-14.4)
[2024-10-23 05:12] LABS: White Blood Count 34.9 x10^3/uL (4.23-9.07)
--- NOTE | 2024-10-23 05:18 | PCM.NOTE ---
Date and Time: 10/23/24512 Subjective Assessment: is a 63 year old male with a PMHX of chronic leukemia (follows with Dr. Malcom Munoz with a baseline leukocytosis around 40K), diverticulosis, Charan Kline disease anxiety, and depression admitted 10/18/24 with complaints of N/V/D. CT of the abdomen and pelvis demonstrated ileus vs SBO. Initial labs with leukocytois but at basleline with leukemia, TREVOR, hypocalcemia. The ED physician had spoken with the patient's fondant machine operator, Dr. Malcom Gooden and his assessment was that the patient likely has a viral illness became dehydrated and hemoconcentrated after several episodes of vomiting and diarrhea. Surgery consulted. NG placed with 3075mls out initially. NG pending removal as pt has had multiple bowel movements. Metabolic acidosis and TREVOR have resolved and IV fluids stopped. Changed IVF to LR. Tums tabs started for hypocalcemia. Objective Data Vital Signs: Vital Signs - 24 hr Temp Pulse Resp BP Pulse Ox 10/23/24 04:52 90 20 91 L 10/23/24 04:40 95 H 25 H 88/57 92 L 10/23/24 02:00 88 85/58 10/22/24 23:00 98.4 F 103 H 18 80/60 93 L 10/22/24 20:17 100 H 20 90 L 10/22/24 19:26 98.1 F 96 H 17 99/62 92 L 10/22/24 16:40 96 H 16 91 L 10/22/24 16:00 97.8 F 96 H 18 93/60 91 L 10/22/24 11:15 102 H 18 91 L 10/22/24 10:58 98.3 F 113 H 18 121/77 91 L 10/22/24 07:25 98.0 F 112 H 23 102/68 91 L 10/22/24 06:41 112 H 18 91 L Pain Assessment - Last Documented Pain Intensity 3 Pain Scale Used 0-10 Pain Scale Intake and Output: Intake & Output 10/20/24 10/21/24 10/22/24 10/23/24 11:59 11:59 11:59 11:59 Intake Total 0108 4297 2212 3128 Output Total 0647 8930 4050 Balance -544 -489 -5937 3129 Weight 56.6 kg Lab Results: Lab Results-Last 24 Hours 10/22/24 10/22/24 10/22/24 Range/Units 06:27 06:27 06:27 WBC 29.5 H* (4.23-9.07) x10^3/uL RBC 4.51 L (4.63-6.08) x10^6/uL Hgb 12.9 L (13.7-17.5) g/dL Hct 39.0 L (40.1-51.0) % MCV 86.5 (79.0-92.2) fL MCH 28.6 (25.7-32.2) pg MCHC 33.1 (32.3-36.5) g/dL RDW 15.3 H (11.6-14.4) % Plt Count 194 (163-337) x10^3/uL MPV 10.3 (9.4-12.4) fL Sodium 145 (135-145) mmol/L Potassium 3.1 L (3.5-5.1) mmol/L Chloride 103 (98-107) mmol/L Carbon Dioxide 37 H (22-30) mmol/L Anion Gap 8.2 (5-15) MEQ/L BUN 34 H (9-20) mg/dL Creatinine 0.92 (0.66-1.25) mg/dL Estimated GFR 94.6 ML/MIN Glucose 129 H (74-106) mg/dL Calcium 7.6 L (8.4-10.2) mg/dL Magnesium 2.2 (1.6-2.3) mg/dL Total Bilirubin 1.10 (0.2-1.3) mg/dL AST 41 (17-59) U/L ALT 20 (0-50) U/L Alkaline Phosphatase 76 (38-126) U/L Serum Total Protein 5.6 L (6.3-8.2) g/dL Albumin 2.9 L (3.5-5.0) g/dL 10/22/24 10/22/24 10/22/24 Range/Units 06:27 11:25 15:40 WBC (4.23-9.07) x10^3/uL RBC (4.63-6.08) x10^6/uL Hgb (13.7-17.5) g/dL Hct (40.1-51.0) % MCV (79.0-92.2) fL MCH (25.7-32.2) pg MCHC (32.3-36.5) g/dL RDW (11.6-14.4) % Plt Count (163-337) x10^3/uL MPV (9.4-12.4) fL Sodium (135-145) mmol/L Potassium Cancelled 3.2 L 3.3 L (3.5-5.1) mmol/L Chloride (98-107) mmol/L Carbon Dioxide (22-30) mmol/L Anion Gap (5-15) MEQ/L BUN (9-20) mg/dL Creatinine (0.66-1.25) mg/dL Estimated GFR ML/MIN Glucose (74-106) mg/dL Calcium (8.4-10.2) mg/dL Magnesium (1.6-2.3) mg/dL Total Bilirubin (0.2-1.3) mg/dL AST (17-59) U/L ALT (0-50) U/L Alkaline Phosphatase (38-126) U/L Serum Total Protein (6.3-8.2) g/dL Albumin (3.5-5.0) g/dL 10/23/24 Range/Units 05:00 WBC 34.9 H* (4.23-9.07) x10^3/uL RBC 4.52 L (4.63-6.08) x10^6/uL Hgb 12.9 L (13.7-17.5) g/dL Hct 40.0 L (40.1-51.0) % MCV 88.5 (79.0-92.2) fL MCH 28.5 (25.7-32.2) pg MCHC 32.3 (32.3-36.5) g/dL RDW 15.5 H (11.6-14.4) % Plt Count 203 (163-337) x10^3/uL MPV 10.4 (9.4-12.4) fL Sodium (135-145) mmol/L Potassium (3.5-5.1) mmol/L Chloride (98-107) mmol/L Carbon Dioxide (22-30) mmol/L Anion Gap (5-15) MEQ/L BUN (9-20) mg/dL Creatinine (0.66-1.25) mg/dL Estimated GFR ML/MIN Glucose (74-106) mg/dL Calcium (8.4-10.2) mg/dL Magnesium (1.6-2.3) mg/dL Total Bilirubin (0.2-1.3) mg/dL AST (17-59) U/L ALT (0-50) U/L Alkaline Phosphatase (38-126) U/L Serum Total Protein (6.3-8.2) g/dL Albumin (3.5-5.0) g/dL Radiology Exams: Radiology Procedures Category Date Time Status KUB Urgent Exams 10/21/24 12:30 Completed KUB Urgent Exams 10/21/24 20:30 Taken Assessment/Plan (1) Ileus Current Visit: Yes Status: Acute Assessment & Plan: - Bowel rest. IV fluids, NG placement -NG pulled 10/22/24 - CLD diet started - advance today - IV PPI - Surgery following - CT abd/ pelvis reviewed demonstrating ileus vs sbo - Pain control Code(s): K56.7 - ILEUS, UNSPECIFIED (2) Dehydration Current Visit: Yes Status: Acute Assessment & Plan: - resolved Code(s): E86.0 - DEHYDRATION (3) Hypokalemia Current Visit: Yes Status: Acute Assessment & Plan: -Replenish per potassium protocol -tele -potassium reviewed at 3.5 Code(s): E87.6 - HYPOKALEMIA (4) Leukocytosis Current Visit: Yes Status: Acute Assessment & Plan: - Baseline WBC 40K -WBC reviewed and trending up at 34.9>29.5- monitor - Suspect component of hemoconcentration from dehydration Code(s): D72.829 - ELEVATED WHITE BLOOD CELL COUNT, UNSPECIFIED (5) Metabolic acidosis Current Visit: Yes Status: Acute Assessment & Plan: - resolved, co2 reviewed at 35 Code(s): E87.20 - ACIDOSIS, UNSPECIFIED (6) Vomiting and diarrhea Current Visit: Yes Status: Acute Assessment & Plan: -resolved Code(s): R11.10 - VOMITING, UNSPECIFIED; R19.7 - DIARRHEA, UNSPECIFIED (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 Nix - adds to complexity Code(s): C95.90 - LEUKEMIA, UNSPECIFIED NOT HAVING ACHIEVED REMISSION (9) TREVOR (acute kidney injury) Current Visit: Yes Status: Resolved Assessment & Plan: - resolved - creat reviewed at 0.93 -monitor renal/lytes -avoid nephrotoxic agents VTE: SCD's PPI: protonix Next of KIN: D/C plan: 1-2 days Code status: Full Code(s): N17.9 - ACUTE KIDNEY FAILURE, UNSPECIFIED
[2024-10-23 05:51] LABS: ANION GAP 8.2 MEQ/L (5-15); Calcium 7.7 mg/dL (8.4-10.2); Creatinine 1 0.93 mg/dL (0.66-1.25); EST GLOMERULAR FILTRATION RATE 93.4 ML/MIN; MAGNESIUM 1.9 mg/dL (1.6-2.3); Potassium 3.5 mmol/L (3.5-5.1)
[2024-10-23 07:44] VITALS: O2SAT 90
--- NOTE | 2024-10-23 09:48 | XRAY ---
CLINICAL HISTORY: bowel obstruction COMPARISON: 10/21/2024 11:33:38 MOBILE APPLICATION ENGINEER TECHNIQUE: X-ray images of the abdomen were obtained in supine position. FINDINGS: Gas Pattern: Interval contrast filling of the small and large bowel with no evidence of air-fluid levels or pneumoperitoneum. Spontaneous contrast filling of the urinary bladder is appreciated. Soft Tissues: Soft tissues of the abdomen appear normal without evidence of masses or calcifications. IMPRESSION: 1. Interval contrast filling of the small and large bowel with no evidence of air-fluid levels or pneumoperitoneum. 2. Spontaneous contrast filling of the urinary bladder is appreciated. 3. A CT abdomen is suggested for further evaluation if clinically warranted. Electronically Signed by: Sophie Quintero MD. (10/21/2024 22:56:37 EST)
--- NOTE | 2024-10-23 11:53 | PCM.DS ---
Discharge Summary Date of Admission: 10/19/24 17:00 Date of Discharge: 10/23/24 Admitting Physician: EMA MOJICA MD Consults: Consults on Case 10/18/24 21:50 Consult Surgery ROUTINE Primary Care Provider: ALLY CHAPMAN Allergies Allergies No Known Drug Allergies Allergy (Verified 10/18/24 18:34) Hospital Summary - Hospital Course Hospital Course: is a 63 year old male with a PMHX of chronic leukemia (follows with Dr. Malcom Munoz with a baseline leukocytosis around 40K), diverticulosis, Charan Kline disease anxiety, and depression admitted 10/18/24 with complaints of N/V/D. CT of the abdomen and pelvis demonstrated ileus vs SBO. Initial labs with leukocytois but at basleline with leukemia, TREVOR, hypocalcemia. The ED physician had spoken with the patient's screen cleaner, Dr. Malcom Gooden and his assessment was that the patient likely has a viral illness became dehydrated and hemoconcentrated after several episodes of vomiting and diarrhea. Surgery consul mariel. NG placed with 3075mls out initially. NG removed and patient tolerating full diet. +BM, +flatulence. Metabolic acidosis and TREVOR have resolved and IV fluids stopped. Patient anxious for discharge. Patient okay for discharge per surgery. Will have him follow up with surgery, PCP, and oncology. Discharge Note New Diagnosis: ileus Follow Up: PCP, oncology, surgery Latest Assessment & Plan (1) Ileus Current Visit: Yes Status: Acute Assessment & Plan: -NG pulled 10/22/24 -tolerating full diet - no nausea -+BM + flatulence - IV PPI - Surgery following - CT abd/ pelvis reviewed demonstrating ileus vs sbo - Pain control Code(s): K56.7 - ILEUS, UNSPECIFIED (2) Dehydration Current Visit: Yes Status: Acute Assessment & Plan: - resolved Code(s): E86.0 - DEHYDRATION (3) Hypokalemia Current Visit: Yes Status: Acute Assessment & Plan: -Replenish per potassium protocol -tele -potassium reviewed at 3.5 -resolved Code(s): E87.6 - HYPOKALEMIA (4) Leukocytosis Current Visit: Yes Status: Acute Assessment & Plan: - Baseline WBC 40K -WBC reviewed and trending up at 34.9>29.5- monitor - Suspect component of hemoconcentration from dehydration Code(s): D72.829 - ELEVATED WHITE BLOOD CELL COUNT, UNSPECIFIED (5) Metabolic acidosis Current Visit: Yes Status: Acute Assessment & Plan: - resolved, co2 reviewed at 35 Code(s): E87.20 - ACIDOSIS, UNSPECIFIED (6) Vomiting and diarrhea Current Visit: Yes Status: Acute Assessment & Plan: -resolved Code(s): R11.10 - VOMITING, UNSPECIFIED; R19.7 - DIARRHEA, UNSPECIFIED (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 Nix -follow up as OP - adds to complexity Code(s): C95.90 - LEUKEMIA, UNSPECIFIED NOT HAVING ACHIEVED REMISSION (9) TREVOR (acute kidney injury) Current Visit: Yes Status: Resolved Assessment & Plan: - resolved - creat reviewed at 0.93 -monitor renal/lytes -avoid nephrotoxic agents I spent 35 minutes [id number] with the patient on the day of discharge performing discharge exam, discussing hospital stay and discharge instructions with patient and caregivers, preparation of discharge records, prescriptions & referral forms and addressing any questions/concerns the patient had as documented above. - Vitals & Intake/Output Vital Signs: Vital Signs Temperature 97.6 F 10/23/24 07:40 Pulse Rate 97 H 10/23/24 09:56 Respiratory Rate 18 10/23/24 07:40 Blood Pressure 89/60 10/23/24 09:56 O2 Sat by Pulse Oximetry 90 L 10/23/24 07:40 Intake & Output: Intake & Output 10/20/24 10/21/24 10/22/24 10/23/24 11:59 11:59 11:59 11:59 Intake Total 6827 4011 6082 3188 Output Total 3695 1411 1022 Balance -382 -061 -7456 318 Weight 56.6 kg - Lab Result Diagrams: 10/23/24 05:00 10/23/24 05:00 Lab Results-Last 24 Hrs: Lab Results-Last 24 Hours 10/22/24 10/22/24 10/23/24 Range/Units 11:25 15:40 05:00 WBC (4.23-9.07) x10^3/uL RBC (4.63-6.08) x10^6/uL Hgb (13.7-17.5) g/dL Hct (40.1-51.0) % MCV (79.0-92.2) fL MCH (25.7-32.2) pg MCHC (32.3-36.5) g/dL RDW (11.6-14.4) % Plt Count (163-337) x10^3/uL MPV (9.4-12.4) fL Smear Path Review Sodium 144 (135-145) mmol/L Potassium 3.2 L 3.3 L 3.5 (3.5-5.1) mmol/L Chloride 105 (98-107) mmol/L Carbon Dioxide 35 H (22-30) mmol/L Anion Gap 8.2 (5-15) MEQ/L BUN 26 H (9-20) mg/dL Creatinine 0.93 (0.66-1.25) mg/dL Estimated GFR 93.4 ML/MIN Glucose 94 (74-106) mg/dL Calcium 7.7 L (8.4-10.2) mg/dL Magnesium 1.9 (1.6-2.3) mg/dL 10/23/24 Range/Units 05:00 WBC 34.9 H* (4.23-9.07) x10^3/uL RBC 4.52 L (4.63-6.08) x10^6/uL Hgb 12.9 L (13.7-17.5) g/dL Hct 40.0 L (40.1-51.0) % MCV 88.5 (79.0-92.2) fL MCH 28.5 (25.7-32.2) pg MCHC 32.3 (32.3-36.5) g/dL RDW 15.5 H (11.6-14.4) % Plt Count 203 (163-337) x10^3/uL MPV 10.4 (9.4-12.4) fL Smear Path Review Pending Sodium (135-145) mmol/L Potassium (3.5-5.1) mmol/L Chloride (98-107) mmol/L Carbon Dioxide (22-30) mmol/L Anion Gap (5-15) MEQ/L BUN (9-20) mg/dL Creatinine (0.66-1.25) mg/dL Estimated GFR ML/MIN Glucose (74-106) mg/dL Calcium (8.4-10.2) mg/dL Magnesium (1.6-2.3) mg/dL - Radiology Exams Ordered Rad Exams-Entire Visit: Radiology Procedures Category Date Time Status KUB Urgent Exams 10/21/24 12:30 Completed KUB Urgent Exams 10/21/24 20:30 Completed - Procedures and Test Procedures and Tests throughout Hospitalization: Therapy Orders & Screens 10/18/24 21:58 PT Eval & Treat (MD Order) ONCE Reason for Eval:: Ileus Diagnosis: SBO versus ileus 10/18/24 23:35 RT Screen per Nursing Assess ONCE Comment: Protocol Order Physician Instructions: Greater than 3 points order RT Admission Screen Reason For Exam: Triggered on Admission Diagnosis: SBO versus ileus Diagnosis: SBO versus ileus Pneumonia: No Home O2: Yes Asthma: No CHF: No Home CPAP/BIPAP: No Home Nebs/MDI: Yes Total Points: 10 Smoking Cessation Education ONCE Comment: Diagnosis: SBO versus ileus Smoking Status: Current every day smoker How long have you smoked: years Approximately how many cigarettes per day: 1/2 pack/day Do you dip or chew tobacco: No 10/19/24 00:37 Respiratory Therapy Assessment DAILY Comment: Diagnosis: SBO versus ileus 10/19/24 16:26 Respiratory MDI UD Comment: Diagnosis: SBO versus ileus 10/19/24 17:00 EKG ROUTINE Comment: Diagnosis: SBO versus ileus 10/19/24 23:32 Oxygen Oxymask LPM 3 lpm Comment: Diagnosis: SBO versus ileus 10/19/24 23:34 Incentive Spirometry UD Comment: Diagnosis: SBO versus ileus Discharge Exam General Appearance: no apparent distress Neurologic Exam: alert, oriented x 3, cooperative Eye Exam: PERRL Ears, Nose, Throat Exam: normal ENT inspection Neck Exam: normal inspection Respiratory Exam: crackles/rales Cardiovascular Exam: regular rate/rhythm, normal heart sounds Gastrointestinal/Abdomen Exam: soft, normal bowel sounds Male Genitalia Exam: deferred Rectal Exam: deferred Back Exam: normal inspection Extremity Exam: normal inspection Skin Exam: normal color Final Diagnosis/Problem List - Final Discharge Diagnosis/Problem (1) Ileus Current Visit: Yes Status: Acute Code(s): K56.7 - ILEUS, UNSPECIFIED (2) Dehydration Current Visit: Yes Status: Acute Code(s): E86.0 - DEHYDRATION (3) Hypokalemia Current Visit: Yes Status: Acute Code(s): E87.6 - HYPOKALEMIA (4) Leukocytosis Current Visit: Yes Status: Acute Code(s): D72.829 - ELEVATED WHITE BLOOD CELL COUNT, UNSPECIFIED (5) Metabolic acidosis Current Visit: Yes Status: Acute Code(s): E87.20 - ACIDOSIS, UNSPECIFIED (6) Vomiting and diarrhea Current Visit: Yes Status: Acute Code(s): R11.10 - VOMITING, UNSPECIFIED; R19.7 - DIARRHEA, UNSPECIFIED (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 Code(s): G25.3 - MYOCLONUS; Z86.74 - PE RSONAL HISTORY OF SUDDEN CARDIAC ARREST (8) Leukemia Current Visit: Yes Status: Chronic Code(s): C95.90 - LEUKEMIA, UNSPECIFIED NOT HAVING ACHIEVED REMISSION (9) TREVOR (acute kidney injury) Current Visit: Yes Status: Resolved Code(s): N17.9 - ACUTE KIDNEY FAILURE, UNSPECIFIED - Discharge Disposition: Home, Self-Care Condition: Stable Prescriptions: Continue PARoxetine HCL [Paxil] 30 mg PO BID Aspirin EC 81 mg [Ecotrin 81 mg] 81 mg PO BID Docusate Sodium 100 mg [Docusate Sodium 100 MG] 100 mg PO DAILY Levetiracetam [Keppra] 500 mg PO BID Fluticasone/Umeclidin/Vilanter [Trelegy Ellipta 100-62.5-25] 1 unit IH DAILY Atorvastatin Calcium 80 mg PO DAILY Albuterol Sulfate [Albuterol Sulfate Hfa] 1 puff IH DAILY clonazePAM [Klonopin] 0.5 mg PO TID Ondansetron ODT 4 MG [Zofran Odt 4 mg] 4 mg PO Q6H PRN PRN #10 tablet PRN Reason: Vomiting Follow up with: ALLY CHAPMAN [Primary Care Provider] - 11/03/24 2:15 pm VELASQUEZ JOYNER DO [ACTIVE STAFF] - 1 Week MALCOM MUNOZ MD [COURTESY STAFF] - 5 Days
[2024-10-23 12:22] VITALS: BP 98/63; PULSE 102; RESP 17; TEMP 97.7
--- NOTE | 2024-10-24 10:00 | CONS ---
Patient seen initially by Dr. Lombardo and Dr. Vasques. He had a small-bowel follow through. Gastric contrast went through. He is having bowel movements. Initially seen for possible partial obstruction or ileus. He is improved. He is tolerating a regular diet. He is denying any abdominal pain now he is having bowel movements. He had his diet advanced yesterday. He is on regular food today. He would like to go home. I do not feel he needs any acute surgical intervention. If he has any recurrent problems, he could follow up with Dr. Vasques or Dr. Lombardo as an outpatient. At this time, he does not need any acute surgical intervention. I do believe they want him to go home today. His abdomen is soft, nontender. No peroneal signs. Is vital signs have been stable, tolerating a diet, moving his bowels.
== END 2024-10-23 15:15 | disposition home or self-care (01) | DRG 389 ==
LOC: ED 18:30 → MED SURG 21:46 → UNDOADMIN 21:46 → MED SURG 10-19 17:00 → OBSVTOIN 10-19 17:00 → ED 10-19 18:30 → UNDODISIN 10-23 15:15
PROVIDERS: ADMIT Internal Medicine; ATTEND Internal Medicine
DX: K56.7 Ileus, unspecified (principal); C95.10 Chronic leukemia of unspecified cell type not having achieved remission; E87.20 Acidosis, unspecified; N17.9 Acute kidney failure, unspecified; E86.0 Dehydration; E87.6 Hypokalemia; R11.10 Vomiting, unspecified; R19.7 Diarrhea, unspecified; G25.3 Myoclonus; F17.200 Nicotine dependence, unspecified, uncomplicated; Z86.74 Personal history of sudden cardiac arrest; Z79.899 Other long term (current) drug therapy
CPT/HCPCS: 36415; 74018; 74021; 80048; 80053; 83735; 84132; 85027; 93005; 94640; 94760; 96374; 96375; 99284; G0378; J1171; J2060; J2405; J3480; J7609; Q3014; A9270-GY

== ENCOUNTER 2024-11-25 19:41 | Emergency (ER) | payer BC ==
[2024-11-25 20:00] VITALS: TEMP 98.9
[2024-11-25] MEDS ORDERED: Sodium Chloride 0.9% 1000 ML 1,000 ML ONE ×2 (20:18→21:44)
[2024-11-25] MEDS: Sodium Chloride 0.9% 1000 ML 1,000 ML IV STA ×2 (20:19→21:44)
--- NOTE | 2024-11-25 20:19 | ERPHSYRPT ---
- History of Present Illness Source: patient, family Exam Limitations: no limitations Patient Subjective Stated Complaint: c/o shortness of breath Triage Nursing Assessment: patient brought to ED by ambulance with c/o shortness of breath. patient has wheezing lung sounds heard throughout. patient has a productive cough that started yesterday. Patient had chemo Wednesday and and an iron infusion yesterday. Patient states he started to feel bad at 1999 yesterday. Patient wears 2L of oxygen PRN. denies any chest pain. states he has 3/10 abdominal pain when he has to cough. skin w/n/d, afebrile, tachycardic. Physician History: Patient's had cough for about a day and a half. He says it is somewhat difficult to breathe. He has a history of AL L and COPD amongst other things. He is currentlyUndergoing chemotherapy.Nothing really makes the symptoms better. Exertion makes it worse. He is not having any chest pain. He does not have fever or chills at this time. He had a CT of his chest about a week ago and said that there was an infiltrate on it. They did not treated at that time.His cough has been productive. He says its thick and greenish in color. He is gotten a little bit worse as the day went on and decided to come in. They called EMS. They brought him in and gave him 2 DuoNebs and some Solu-Medrol. Allergies/Adverse Reactions: No Known Drug Allergies Allergy (Verified 11/25/24 20:00) Home Medications: Albuterol Sulfate [Albuterol Sulfate Hfa] 1 puff IH DAILY 03/07/23 [History] Aspirin EC 81 mg [Ecotrin 81 mg] 81 mg PO BID 03/07/23 [History] Atorvastatin Calcium 80 mg PO DAILY 03/07/23 [History] Docusate Sodium 100 mg [Docusate Sodium 100 MG] 100 mg PO DAILY 03/07/23 [History] Fluticasone/Umeclidin/Vilanter [Trelegy Ellipta 100-62.5-25] 1 unit IH DAILY 03/07/23 [History] Levetiracetam [Keppra] 500 mg PO BID 03/07/23 [History] PARoxetine HCL [Paxil] 30 mg PO BID 03/07/23 [History] clonazePAM [Klonopin] 0.5 mg PO TID 10/18/24 [History] Hx Tetanus, Diphtheria Vaccination/Date Given: Yes Hx Influenza Vaccination/Date Given: Yes Hx Pneumococcal Vaccination/Date Given: No Travel Risk - International Travel Have you traveled outside of the country in past 3 weeks: No - Emerging Infectious Disease Are you exhibiting symptoms associated with any current EIDs: Yes Symptoms: Shortness of Breath - Review of Systems Constitutional: No Symptoms Eyes: No Symptoms Respiratory: Cough, Dyspnea on Exertion (JAMES) Cardiac: No Symptoms Abdominal/Gastrointestinal: No Symptoms Musculoskeletal: No Symptoms Skin: No Symptoms Neurological: No Symptoms All Other Systems: Reviewed and Negative - Past Medical History Pertinent Past Medical History: Yes Neurological History: Stroke ENT History: Cataracts Cardiac History: Hypertension Respiratory History: COPD Endocrine Medical History: Other Musculoskeletal History: Osteoarthritis GI Medical History: No Pertinent History, Other History: No Pertinent History Psycho-Social History: Anxiety, Depression Male Reproductive Disorders: No Pertinent History Other Medical History: PMH: LACERATED SPLEEN, COLLAPSED LUNG, MUTLIPLE RIB AND VERTEBRA FRACTURES, CHRONIC LYMPHOCYTIC LEUKEMIA, BOWEL OBSTRUCTION. PSH: B KNEE SURGERY - Past Surgical History Past Surgical History: Yes Neuro Surgical History: No Pertinent History Cardiac: No Pertinent History Respiratory: Other Gastrointestinal: Other Genitourinary: No Pertinent History Musculoskeletal: Orthopedic Surgery Male Surgical History: No Pertinent History Other Surgical History: abdominial surgery. chest tube. right and left knee ligament repair. PORT PLACEMENT Significant Family History: no pertinent family hx - Social History Smoking Status: Current every day smoker How long have you smoked: years Exposure to second hand smoke: Yes Drug Use: marijuana - Social Determinants of Health Will the patient participate in the screening: Declined to provide Do you worry about a steady place to live?: No In the past 12 months,have you had to go without utilities?: No Transportation Issues: No Has anyone in your support network made you feel unsafe?: No Have you or anyone in your house had to go w/o enough food: No - Nursing Vital Signs Nursing Vital Signs: Initial Vital Signs Temperature 98.9 F 11/25/24 19:42 Pulse Rate 118 H 11/25/24 19:42 Respiratory Rate 22 11/25/24 19:42 Blood Pressure 110/74 11/25/24 19:42 O2 Sat by Pulse Oximetry 99 02/22/25 19:42 Pain Scale Pain Intensity 0 - Physical Exam General Appearance: no apparent distress Eye Exam: PERRL/EOMI, eyes nml inspection Ears, Nose, Throat Exam: normal ENT inspection, TMs normal Respiratory Exam: other (Poor air movement bilaterally. There are some crackles on the right lung about midway up his were I heard him the most. He also had some expiratory wheezes.) Cardiovascular Exam: regular rate/rhythm, normal heart sounds Gastrointestinal/Abdomen Exam: soft, normal bowel sounds, No tenderness, No distention Back Exam: normal inspection Extremity Exam: normal inspection, normal range of motion Neurologic Exam: alert, oriented x 3 Skin Exam: normal color, warm SpO2: 98 - Course Nursing assessment & vital signs reviewed: Yes EKG Interpreted by Me: Sinus Tach, NORMAL AXIS, NORMAL INTERVALS, NORMAL QRS, Other (Interpreted by me) Ordered Tests: Active Orders 24 hr Category Date Time Status IV Insertion STAT Care 11/25/24 20:21 Active CHEST 1 VIEW (PORTABLE) Stat Exams 11/25/24 20:09 Completed BLOOD CULTURE Stat Lab 11/25/24 20:30 Received CBC W DIFF Stat Lab 11/25/24 20:25 Completed CMP Stat Lab 11/25/24 20:25 Completed Lactic Acid Stat Lab 11/25/24 20:35 Completed PROCALCITONIN Stat Lab 11/25/24 20:25 Completed VENOUS BLOOD GAS Stat Lab 11/25/24 20:35 Completed Medication Summary Generic Name Dose Route Start Last Admin Trade Name Freq PRN Reason Stop Dose Admin Sodium Chloride 1,000 mls @ 999 mls/hr 11/25/24 21:39 11/25/24 21:44 Sodium Chloride 0.9% 1000 Ml IV 11/25/24 22:39 999 mls/hr .Q1H1M STA Administration Discontinued Medications Generic Name Dose Route Start Last Admin Trade Name Freq PRN Reason Stop Dose Admin Sodium Chloride 1,000 mls @ 999 mls/hr 11/25/24 20:09 11/25/24 21:36 Sodium Chloride 0.9% 1000 Ml IV 11/25/24 21:09 Infused .Q1H1M STA Infusion Sodium Chloride Confirm 11/25/24 20:18 Sodium Chloride 0.9% 1000 Ml Administered 11/25/24 20:19 Dose 1,000 mls @ ud .ROUTE .STK-MED ONE Sodium Chloride Confirm 11/25/24 21:44 Sodium Chloride 0.9% 1000 Ml Administered 11/25/24 21:45 Dose 1,000 mls @ ud .ROUTE .[facility] Lab/Rad Data: Laboratory Result Diagrams 11/25/24 20:25 11/25/24 20:25 Laboratory Results 11/25/24 11/25/24 11/25/24 Range/Units 20:35 20:35 20:25 WBC (4.23-9.07) x10^3/uL RBC (4.63-6.08) x10^6/uL Hgb (13.7-17.5) g/dL Hct (40.1-51.0) % MCV (79.0-92.2) fL MCH (25.7-32.2) pg MCHC (32.3-36.5) g/dL RDW (11.6-14.4) % Plt Count (163-337) x10^3/uL MPV (9.4-12.4) fL Gran % (34.0-67.9) % Immature Gran % (Auto) (0.001-0.429) % Nucleat RBC Rel Count (0.00-0.2) % Eos # (Auto) (0.04-0.54) x10^3/uL Immature Gran # (Auto) (0.001-0.031) x10^3u/L Absolute Lymphs (auto) (1.32-3.57) x10^3/uL Absolute Monos (auto) (0.30-0.82) x10^3/uL Absolute Nucleated RBC (0.00-0.012) x10^3u/L Lymphocytes % (21.8-53.1) % Monocytes % (5.3-12.2) % Eosinophils % (0.8-7.0) % Basophils % (0.2-1.2) % Absolute Granulocytes (1.78-5.38) x10^3/uL Basophils # (0.01-0.08) x10^3/uL pO2/FiO2 Ratio 21.0 % VBG pH 7.42 (7.32-7.42) VBG pCO2 at Pat Temp 51 (42-55) mm/Hg VBG pO2 at Pat Temp 70 H (25-40) mm/Hg VBG HCO3 33.1 H* (22-28) meq/L VBG O2 Sat (Amricruz) 95.2 (95-100) VBG Base Excess 7.2 H (-2.0-2.0) VBG Hemoglobin 12.7 VBG Carboxyhemoglobin 3.1 (0.0-6.9) % T HGB POC Potassium 3.7 (3.5-5.1) Sodium (135-145) mmol/L Potassium (3.5-5.1) mmol/L Chloride (98-107) mmol/L Carbon Dioxide (22-30) mmol/L Anion Gap (5-15) MEQ/L BUN (9-20) mg/dL Creatinine (0.66-1.25) mg/dL Estimated GFR ML/MIN Glucose (74-106) mg/dL Lactic Acid 1.0 (0.4-2.0) Calcium (8.4-10.2) mg/dL Total Bilirubin (0.2-1.3) mg/dL AST (17-59) U/L ALT (0-50) U/L Alkaline Phosphatase (38-126) U/L Serum Total Protein (6.3-8.2) g/dL Albumin (3.5-5.0) g/dL Procalcitonin 2.000 H (0.030-0.080) ng/mL Influenza Type A Ag POSITIVE A (NEGATIVE) Influenza Type B Ag NEGATIVE (NEGATIVE) RSV (PCR) NEGATIVE (NEGATIVE) SARS-CoV-2 (PCR) NEGATIVE (NEGATIVE) 11/25/24 11/25/24 Range/Units 20:25 20:25 WBC 8.3 (4.23-9.07) x10^3/uL RBC 4.23 L (4.63-6.08) x10^6/uL Hgb 12.1 L (13.7-17.5) g/dL Hct 38.2 L (40.1-51.0) % MCV 90.3 (79.0-92.2) fL MCH 28.6 (25.7-32.2) pg MCHC 31.7 L (32.3-36.5) g/dL RDW 15.4 H (11.6-14.4) % Plt Count 141 L (163-337) x10^3/uL MPV 9.4 (9.4-12.4) fL Gran % 73.8 H (34.0-67.9) % Immature Gran % (Auto) 0.6 H (0.001-0.429) % Nucleat RBC Rel Count 0.0 (0.00-0.2) % Eos # (Auto) 0 L (0.04-0.54) x10^3/uL Immature Gran # (Auto) 0.05 H (0.001-0.031) x10^3u/L Absolute Lymphs (auto) 1.87 (1.32-3.57) x10^3/uL Absolute Monos (auto) 0.24 L (0.30-0.82) x10^3/uL Absolute Nucleated RBC 0.00 (0.00-0.012) x10^3u/L Lymphocytes % 22.6 (21.8-53.1) % Monocytes % 2.9 L (5.3-12.2) % Eosinophils % 0.0 L (0.8-7.0) % Basophils % 0.1 L (0.2-1.2) % Absolute Granulocytes 6.12 H (1.78-5.38) x10^3/uL Basophils # 0.01 (0.01-0.08) x10^3/uL pO2/FiO2 Ratio % VBG pH (7.32-7.42) VBG pCO2 at Pat Temp (42-55) mm/Hg VBG pO2 at Pat Temp (25-40) mm/Hg VBG HCO3 (22-28) meq/L VBG O2 Sat (Maricruz) (95-100) VBG Base Excess (-2.0-2.0) VBG Hemoglobin VBG Carboxyhemoglobin (0.0-6.9) % T HGB POC Potassium (3.5-5.1) Sodium 139 (135-145) mmol/L Potassium 3.6 (3.5-5.1) mmol/L Chloride 98 (98-107) mmol/L Carbon Dioxide 31 H (22-30) mmol/L Anion Gap 13.7 (5-15) MEQ/L BUN 11 (9-20) mg/dL Creatinine 0.67 (0.66-1.25) mg/dL Estimated GFR 105.6 ML/MIN Glucose 115 H (74-106) mg/dL Lactic Acid (0.4-2.0) Calcium 8.8 (8.4-10.2) mg/dL Total Bilirubin 0.70 (0.2-1.3) mg/dL AST 28 (17-59) U/L ALT 21 (0-50) U/L Alkaline Phosphatase 156 H (38-126) U/L Serum Total Protein 6.4 (6.3-8.2) g/dL Albumin 3.6 (3.5-5.0) g/dL Procalcitonin (0.030-0.080) ng/mL Influenza Type A Ag (NEGATIVE) Influenza Type B Ag (NEGATIVE) RSV (PCR) (NEGATIVE) SARS-CoV-2 (PCR) (NEGATIVE) - Progress Progress: improved Air Movement: good Progress Note: I was originally a little worried about sepsis because his blood pressure was low. He says it always runs low he says that usually runs around 90/60 that is where he is after we gave him a liter of fluids. His labs came back and he has influenza. I do not believe that he has pneumonia or is septic. He felt better after 1 L of ongoing to go ahead and give him another 1. We will observe him for the next hour and if he feels good enough to go home and going to let him go home 11/25/24 21:40 Medical Desision Making - Independent Historian Additional History obtained from: Spouse - Risk of complications Low Risk: Low risk of morbidity from additional dx testing or treatment - Departure Departure Disposition: Home Clinical Impression: Influenza A Referrals: ALLY CHAPMAN [Primary Care Provider] - Follow up/PCP as directed
[2024-11-25 20:43] LABS: VBG BASE EXCESS 7.2 (-2.0-2.0); VBG CARBOXYHEMOGLOBIN 3.1 % T HGB (0.0-6.9); VBG HCO3- 33.1 meq/L (22-28); VBG HEMOGLOBIN 12.7; VBG O2 SATURATION 95.2 (95-100); VBG POTASSIUM 3.7 (3.5-5.1); VBG pH 7.42 (7.32-7.42)
[2024-11-25 20:44] LABS: Absolute Neutrophil Ct (ANC) 6.12 x10^3/uL (1.78-5.38); BASOPHIL % 0.1 % (0.2-1.2); Basophil (Absolute #) 0.01 x10^3/uL (0.01-0.08); Eosinophil (Absolute #) 0 x10^3/uL (0.04-0.54); Hematocrit 38.2 % (40.1-51.0); Hemoglobin 12.1 g/dL (13.7-17.5); IMMATURE GRAN # 0.05 x10^3u/L (0.001-0.031); IMMATURE GRAN % 0.6 % (0.001-0.429); Lymphocyte (Absolute #) 1.87 x10^3/uL (1.32-3.57); Lymphocytes % 22.6 % (21.8-53.1); Mean Cell Volume 90.3 fL (79.0-92.2); Mean Corpuscular Hemoglobin 28.6 pg (25.7-32.2); Mean Corpuscular Hgb Concent. 31.7 g/dL (32.3-36.5); Mean Platelet Volume 9.4 fL (9.4-12.4); Monocyte (Absolute #) 0.24 x10^3/uL (0.30-0.82); Monocytes % 2.9 % (5.3-12.2); Neutrophil % 73.8 % (34.0-67.9); Platelet Count 141 x10^3/uL (163-337); Red Blood Count 4.23 x10^6/uL (4.63-6.08); Red Cell Distribution Width 15.4 % (11.6-14.4); White Blood Count 8.3 x10^3/uL (4.23-9.07)
[2024-11-25 20:57] LABS: ALBUMIN 3.6 g/dL (3.5-5.0); ANION GAP 13.7 MEQ/L (5-15); BILIRUBIN,TOTAL 0.7 mg/dL (0.2-1.3); Calcium 8.8 mg/dL (8.4-10.2); Creatinine 1 0.67 mg/dL (0.66-1.25); EST GLOMERULAR FILTRATION RATE 105.6 ML/MIN; Potassium 3.6 mmol/L (3.5-5.1); Total Protein 6.4 g/dL (6.3-8.2)
--- NOTE | 2024-11-25 21:09 | XRAY ---
Indication: Dyspnea. Comparison: None Portable chest demonstrates COPD with scattered fibrosis/scarring bilaterally. Subtle asymmetric right base interstitial alveolar opacities, possible pneumonia/pneumonitis in right clinical setting. Heart not enlarged with right Port-A-Cath. Bony thorax intact with osteopenia and old right rib fractures.
[2024-11-25 21:18] LABS: INFLUENZA B NEGATIVE (NEGATIVE); RESPIRATORY SYNCTIAL VIRUS NEGATIVE (NEGATIVE); SARS-CoV-2 Xpert Express NEGATIVE (NEGATIVE)
[2024-11-25 21:27] LABS: INFLUENZA A POSITIVE (NEGATIVE)
[2024-11-25 23:02] VITALS: BP 88/61; PULSE 101; RESP 28; O2SAT 95
== END 2024-11-25 23:13 | disposition home or self-care (01) ==
LOC: ED 19:41
DX: J10.1 Influenza due to other identified influenza virus with other respiratory manifestations (principal); R05.1 Acute cough; I10 Essential (primary) hypertension; Z79.899 Other long term (current) drug therapy; Z72.0 Tobacco use
CPT/HCPCS: 0241U; 36415; 71045; 80053; 82805; 83605; 84145; 85025; 87040; 99284; 96360; 96361